=== PATIENT | male | born 1955 | race Caucasian/White ===

== ENCOUNTER 2019-09-18 10:03 | Outpatient (CLI) | payer OTHER, SELFPAY ==
--- NOTE | ~2019-09-18 | MR_ITS ---
EXAMINATION: MR lower leg RT wo con DATE: 09/18/2019 12:01 INDICATION: Right lower leg weakness and pain for 2 weeks post experiencing a sharp pain at the right calf with walking TECHNIQUE: Magnetic resonance imaging (MRI) of the right lower leg was performed without intravenous contrast. A marker was placed over the mass. Sequences included axial, sagittal and coronal T1-weigh chrystal FSE and axial, sagittal and coronal fluid sensitive FSE STIR. The lateral left lower leg is inclu ded on the coronal images. COMPARISON: None. FINDINGS: Bone alignment is normal. Normal bone marrow signal throughout with no reactive edema, fracture or pa thologic marrow replacing process. No periostitis. Relatively symmetric muscle bulk throughout both c zaidi. There is a small tear along the distal myotendinous junction of the medial head of the gastroc nemius muscle which measures approximately 1 cm in width. The width of the medial head of the gastroc nemius portion of the proximal most Achilles tendon at this level measures approximately 5 cm. No sig nificant retraction. There is a very small fluid collection at the 7 tear with mild epimysial and mus cular edema about the distal aspect of the medial head of the gastrocnemius muscle. Physiologic amoun t of fluid at the bilateral knee joints. IMPRESSION: 1. Small moderate grade tear at the distal myotendinous junction of the medial head of the right stacy rocnemius muscle. Reviewed, dictated and finalized at location A. RISK ANALYST IMPRESSION: 1. Small moderate grade tear at the distal myotendinous junction of the medial head of the right gastrocnemius muscle.
== END 2019-09-18 10:04 | disposition home or self-care (01) ==
LOC: ANHIMG 10:10
PROVIDERS: PCP Family Medicine; Visit Provider Nurse Practitioner Family
DX: M79.661 Pain in right lower leg (principal); R29.898 Other symptoms and signs involving the musculoskeletal system
CPT/HCPCS: 73718

== ENCOUNTER 2019-10-26 10:29 | Emergency (ER) | payer OTHER, SELFPAY ==
--- NOTE | ~2019-10-26 | XR_ITS ---
EXAMINATION: XR chest 1V portable EXAM DATE: 10/26/2019 11:19 INDICATION: Cough, shortness of breath, history of smoking. TECHNIQUE: Portable AP frontal chest x-ray was obtained. Comparison is made to prior examination from 07/13/2012. FINDINGS: The lungs are clear. There are no pleural effusions. Cardiomediastinal silhouette is norm al. There is no pneumothorax suspected. The bones and soft tissues are unremarkable. IMPRESSION: No acute cardiopulmonary findings. Reviewed, dictated and finalized at location B.
[2019-10-26 10:38] VITALS: BP 143/84; PULSE 84; RESP 20; TEMP 36.4; O2SAT 96
[2019-10-26 10:43] VITALS: PULSE 68; RESP 14; O2SAT 99
--- NOTE | 2019-10-26 10:45 | ECG_ITS ---
Measurements Intervals [place] Rate: 85 P: 62 CO: 171 QRS: -22 QRSD: 101 T: 63 QT: 365 QTc: 436 Interpretive Statements SINUS RHYTHM BORDERLINE R WAVE PROGRESSION, ANTERIOR LEADS BORDERLINE T WAVE ABNORMALITY- LATERAL LEADS BASELINE ARTIFACT- I, III, V4 BORDERLINE ECG Electronically Signed On 10-26-2019 10:51:17 CDT by Heriberto Mejia D.O.
[2019-10-26] MEDS: SODIUM CHLORIDE 0.9% IV 1,000 ML 999 ML IV CONT (10:55)
[2019-10-26] MEDS: FAMOTIDINE 20 MG/2 ML VIAL IV PUSH (10:56)
[2019-10-26] MEDS: ONDANSETRON INJ 4 MG/2 ML VIAL IV PUSH (10:56)
[2019-10-26 10:57] LABS: Basophils Percent Auto 0.3 % (0.2-1.2); Hematocrit 49.4 % (42.0-52.0); Hemoglobin 16.8 g/dL (14.0-18.0); Immature Granulocyte Absolute 0.03 K/mm3 (0.00-0.031); Immature Granulocyte Percent A 0.4 % (0-0.5); Lymphocytes Absolute Auto 1.61 K/mm3 (0.9-3.2); Lymphocytes Percent Auto 23.9 % (18.3-44.2); Mean Corpuscular Hemoglobin 31.1 pg (26-34); Mean Corpuscular Volume 91.3 fl (80-100); Mean Platelet Volume 10.5 fl (7.4-10.4); Monocytes Absolute Auto 0.7 K/mm3 (0.1-0.6); Monocytes Percent Auto 10.8 % (2.6-8.5); Neutrophils Absolute Auto 4.4 K/mm3 (1.3-6.7); Neutrophils Percent Auto 64.6 % (45.5-73.1); Platelet Count Result 154 k/mm3 (150-375); Red Blood Count 5.41 M/mm3 (4.6-6.20); Red Cell Distribution Width 12.6 % (11.5-14.5); White Blood Count 6.7 K/mm3 (4.5-10.0)
[2019-10-26 11:01] LABS: Glucose Point of Care 169 (65-105)
[2019-10-26 11:04] LABS: Add Urine Microscopic? YES; Appearance Urine Clear (Clear); Bilirubin Urine Negative (Negative); Blood Urine Negative (Negative); Color Urine Yellow (Yellow); Glucose Urine UA 3+ mg/dL (Negative); Ketones Urine Negative (Negative); Leukocyte Esterase Ur Negative LEU/UL (Negative); Mucus Urine Rare /lpf; Nitrate Urine Negative (Negative); Protein Urine 2+ mg/dL (Negative); RBC Urine 0-2 /hpf (0-2); Specific Grav Ur 1.026 (1.001-1.035); Squamous Epithelial Cell Urine Rare /hpf (Few); Urobilinogen Urine Negative mg/dL (<2.0); WBC Urine 0-3 /hpf
[2019-10-26 11:09] LABS: Lactate Dehydrogenase 508 U/L (313-618)
--- NOTE | 2019-10-26 11:12 | ED.ABDPAIN ---
HPI - Abdominal Pain General Chief Complaint: Unspecified <SUKHWINDER Miller Last Filed: 10/26/19 13:38> Stated Complaint: multiple complaints <SUKHWINDER Miller Last Filed: 10/26/19 13:38> Time Seen by Provider: 10/26/19 10:32 <SUKHWINDER Miller Last Filed: 10/26/19 13:38> Source: patient <SUKHWINDER Miller Last Filed: 10/26/19 13:38> Mode of arrival: ambulatory <SUKHWINDER Miller Last Filed: 10/26/19 13:38> Limitations: no limitations <SUKHWINDER Miller Last Filed: 10/26/19 13:38> History of Present Illness HPI narrative: Patient is a 64-year-old male who presents to emergency department for evaluation of chills body aches for the last several days with nausea vomiting diarrhea minimal cough with some rhinorrhea congestion and sore throat. 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 Patient is insulin-dependent notes that his sugars have been under 200. Patient has not been seen for this complaint patient notes fatigue being his worst symptom. Patient does note slight dyspnea but denies any chest pain <SUKHWINDER Miller Last Filed: 10/26/19 13:38> Related Data Home Medications: Home Medications Medication Instructions Recorded Confirmed escitalopram oxalate 10 mg tablet 10 mg PO DAILY 05/31/19 insulin aspart U-100 100 unit/mL 10 unit SUB-Q TID 05/31/19 subcutaneous solution insulin degludec 100 unit/mL 70 unit SUB-Q DAILY ml 05/31/19 subcutaneous solution rosuvastatin 20 mg tablet 20 mg PO DAILY 05/31/19 <SUKHWINDER Miller Last Filed: 10/26/19 13:38> Allergies/Adverse Reactions: Allergies Allergy/AdvReac Type Severity Reaction Status Date / Time levofloxacin Allergy Unknown rash Verified 09/04/19 08:02 <SUKHWNIDER Miller Last Filed: 10/26/19 13:38> Review of Systems Review of Systems: All systems reviewed & are unremarkable except as noted in HPI and below <SUKHWINDER Miller Last Filed: 10/26/19 13:38> [facility] Past Medical History Medical History: Medical History Diabetes mellitus <Erik Jackson PA-C - Last Filed: 10/26/19 13:38> Surgical History Surgical History: Surgical History History of orthopedic surgery <Erik Jackson PA-C - Last Filed: 10/26/19 13:38> Social History Social History: Social History Smoking status: Former smoker Second hand tobacco smoke exposure: No Smoking end date: 07/19/10 Alcohol intake: current <Erik Jackson PA-C - Last Filed: 10/26/19 13:38> Exam Narrative: Exam Narrative: GENERAL: Well-appearing, well-nourished, and in no acute distress. HEAD: Normocephalic, atraumatic. EYES: PERRLA and EOMI. ENT: Nares clear, no rhinorrhea or epistaxis. Mucous membranes moist. Oropharynx without tonsillar hypertrophy exudate or other lesions. NECK: Supple. No adenopathy or masses. CHEST: Clear to auscultation. No respiratory distress. No wheezes rales or rhonchi HEART: Regular rate and rhythm. No murmur heard. Normal peripheral pulses. ABDOMEN: Soft, nontender, nondistended, EXTREMITIES: Normal range of motion. No edema. SKIN: Warm, dry, no rash. NEURO: No focal deficits. Alert and oriented x3. PSYCH: Normal mood and affect. <Erik Jackson PA-C - Last Filed: 10/26/19 13:38> Course Course Emergency Course: Patient in the room in no distress without high risk changes in the blood work or imaging patient was hydrated and is feeling much better at this time notes that he feels comfortable prefers to go home is aware of recommendations and discussion with primary care. Patient will have video follow-up in 1 week with primary care and was given stric
[2019-10-26 11:15] LABS: Alanine Aminotransferase 66 U/L (4-50); Albumin Level 4.5 g/dL (3.5-5.1); Alkaline Phosphatase 99 U/L (38-126); Aspartate Amino Transferase 68 U/L (17-59); Bilirubin,Total 0.7 mg/dL (0.2-1.3); Blood Urea Nitrogen 36 mg/dL (9-20); CRP 1.4 mg/dL (<1.0); Calcium 9.3 mg/dL (8.4-10.2); Carbon Dioxide 24 mmol/L (22-30); Chloride 97 mmol/L (98-107); Estimated CRCL calculation 50 ml/min; Estimated Glomerular Filt Rate 44; Glucose 193 mg/dL (75-110); Phosphorus 4.1 mg/dL (2.5-4.5); Potassium 4.4 mmol/L (3.4-5.0); Sodium 134 mmol/L (137-145)
[2019-10-26] MEDS: LACTATED RINGERS 1,000 ML 999 ML IV CONT (11:49)
[2019-10-26 11:50] VITALS: BP 118/70; PULSE 77; RESP 18; O2SAT 98
[2019-10-26 13:44] VITALS: BP 118/70; PULSE 71; RESP 18; O2SAT 97
[2019-10-26 13:45] VITALS: BP 118/70; PULSE 72; RESP 12; O2SAT 96
== END 2019-10-26 13:47 | disposition home or self-care (01) ==
PROVIDERS: Emergency Medicine Emergency Medical Services; Emergency Provider Emergency Medicine; PCP Family Medicine
DX: R11.10 Vomiting, unspecified (principal); Z87.891 Personal history of nicotine dependence; E11.9 Type 2 diabetes mellitus without complications; Z79.4 Long term (current) use of insulin; R94.31 Abnormal electrocardiogram [ECG] [EKG]
CPT/HCPCS: 36415; 71045; 80053; 81001; 82010; 82948; 83615; 83735; 84100; 85025; 86140; 87081; 87880; 93005; 96361; 96374; 96375; 99284; J0131; J2405; J7030; J7120

== ENCOUNTER 2021-04-11 11:43 | Inpatient (IN) | payer OTHER, SELFPAY ==
--- NOTE | ~2021-04-11 | XR_ITS ---
EXAMINATION: XR chest 2V EXAM DATE: 04/11/2021 13:31 INDICATION: Cough, HX: COPD, DM . TECHNIQUE: Frontal and lateral projections of the chest obtained and reviewed. Comparison is made to prior examination from 10/26/2019. FINDINGS: The lungs are clear. There are no pleural effusions. The cardiomediastinal silhouette is within normal limits. There is no pneumothorax suspected. The bones and soft tissues are unremarkab le. IMPRESSION: No acute cardiopulmonary findings. Reviewed, dictated and finalized at location B.
[2021-04-11 11:51] VITALS: BP 136/84; PULSE 111; RESP 16; TEMP 36.6; O2SAT 96
--- NOTE | 2021-04-11 13:17 | ED.GENADULT ---
HPI - General Adult General Chief complaint: Upper Respiratory Infection Stated complaint: Chills/weak/ I think I have COVID Time Seen by Provider: 04/11/21 12:35 Source: patient Mode of arrival: ambulatory Limitations: no limitations History of Present Illness HPI narrative: Patient is a 66-year-old male complaining of cough, fever, body aches, malaise that started 5 days ago. Patient also complaining of a tender area on his upper back that started 6 days ago. Patient denies any chest pain, shortness of breath, abdominal pain, nausea, vomiting, diarrhea, or urinary symptoms. Patient states that he is fully vaccinated from [employer]. Related Data Allergies Allergy/AdvReac Type Severity Reaction Status Date / Time levofloxacin Allergy Unknown rash Verified 06/06/20 08:55 Review of Systems Review of Systems: All systems reviewed & are unremarkable except as noted in HPI and below Constitutional: Constitutional: Denies excessive sweating, Denies fatigue, Denies headache(s), Denies lethargy, Denies weakness and Denies weight loss Eyes: Eyes: Denies blurry vision, Denies change in vision and Denies loss of vision ENT: Denies dizziness, Denies ear discharge, Denies headache(s), Denies lip swelling, Denies epistaxis, Denies nasal congestion, Denies neck pain, Denies throat swelling and Denies tongue swelling Cardiovascular: Cardiovascular: Denies chest pain, Denies chest pain at rest, Denies chest pain with activity, Denies diaphoresis, Denies rapid heart rate, Denies edema, Denies irregular heart rhythm, Denies lightheadedness, Denies palpitations, Denies dyspnea and Denies dyspnea on exertion Respiratory: Respiratory: Denies chest congestion, Denies hemoptysis, Denies dyspnea and Denies dyspnea on exertion Gastrointestinal: Gastrointestinal: Denies abdominal pain, Denies melena, Denies hematochezia, Denies diarrhea, Denies nausea, Denies vomiting and Denies hematemesis Musculoskeletal: Musculoskeletal: Denies abnormal gait, Denies deformity, Denies joint swelling, Denies limited range of motion, Denies neck pain and Denies numbness Neurologic: Denies Abnormal speech present, Denies abnormal gait, Denies confusion, Denies dizziness, Denies headache(s), Denies focal weakness, Denies loss of vision, Denies numbness, Denies Other visual disturbances, Denies Sensory deficit (Neuro) and Denies weakness Psychiatric: Psychiatric: Denies confusion, Denies depression, Denies auditory hallucinations, Denies homicidal ideation and Denies suicidal ideation Endocrine: Endocrine: Denies cold intolerance, Denies excessive sweating, Denies fatigue, Denies heat intolerance and Denies palpitations Hematologic/Lymphatic: Hematologic/Lymphatic: Denies easy bleeding and Denies easy bruising Allergic/Immunologic: Allergic/Immunologic: Denies lip swelling, Denies throat swelling and Denies tongue swelling PMFSH Past Medical History Medical History (Updated 04/11/21 @ 17:51 by Trevor Lockwood MD) Back pain COPD (chronic obstructive pulmonary disease) Diabetes mellitus Diabetes mellitus with complication, with long-term current use of insulin Erectile dysfunction Glaucoma Surgical History Surgical History History of orthopedic surgery Family History Family History Grandparent Family history of malignant neoplasm Father Carcinoma of colon Family history of type 2 diabetes mellitus Diabetes mellitus Hypertension Mother Lung disease Heart disease COPD (chronic obstructive pulmonary disease) Glaucoma Hypertension Sibling Liver disease Other Family history of cardiovascular disease Social History Social History Smoking status: Former smoker Second hand tobacco smoke exposure: No Smoking end date: 07/19/10 Alcohol intake: current Exam Const:
[2021-04-11 14:05] LABS: Basophils Absolute Auto 0.1 K/mm3 (0.0-0.1); Basophils Percent Auto 0.3 % (0.2-1.2); Eosinophils Absolute Auto 0.2 K/mm3 (0-0.3); Hematocrit 42.9 % (42.0-52.0); Immature Granulocyte Absolute 0.19 K/mm3 (0.00-0.031); Immature Granulocyte Percent A 1.2 % (0-0.5); Lymphocytes Absolute Auto 0.94 K/mm3 (0.9-3.2); Lymphocytes Percent Auto 5.8 % (18.3-44.2); Mean Corpuscular Hemoglobin 32.7 pg (26-34); Mean Corpuscular Volume 93.5 fl (80-100); Mean Platelet Volume 10.5 fl (7.4-10.4); Monocytes Absolute Auto 1.4 K/mm3 (0.1-0.6); Monocytes Percent Auto 8.3 % (2.6-8.5); Neutrophils Absolute Auto 13.6 K/mm3 (1.3-6.7); Neutrophils Percent Auto 83.4 % (45.5-73.1); Platelet Count Result 227 k/mm3 (150-375); Red Blood Count 4.59 M/mm3 (4.6-6.20); Red Cell Distribution Width 11.9 % (11.5-14.5); White Blood Count 16.3 K/mm3 (4.5-10.0)
[2021-04-11 14:15] LABS: Lactic Acid Reflex 1.7 mmol/L (0.7-2.1)
[2021-04-11] MEDS: SODIUM CHLORIDE 0.9% IV 1,000 ML 999 ML IV CONT (14:24)
[2021-04-11 15:02] LABS: Anion Gap 21 mmol/L (8-16); Blood Urea Nitrogen 57 mg/dL (9-20); Calcium 9.1 mg/dL (8.4-10.2); Carbon Dioxide 17 mmol/L (22-30); Chloride 88 mmol/L (98-107); Estimated CRCL calculation 53 ml/min; Estimated Glomerular Filt Rate 51; Glucose 595 mg/dL (65-110); Potassium 4.7 mmol/L (3.4-5.0); Sodium 126 mmol/L (137-145)
[2021-04-11 15:10] VITALS: BP 142/79; PULSE 93; RESP 16; O2SAT 95
[2021-04-11 16:10] LABS: Add Urine Microscopic? YES; Appearance Urine Clear (Clear); Bilirubin Urine Negative (Negative); Blood Urine 1+ (Negative); Color Urine Straw (Yellow); Glucose Urine UA 3+ mg/dL (Negative); Ketones Urine 1+ mg/dL (Negative); Leukocyte Esterase Ur Negative LEU/UL (Negative); Nitrate Urine Negative (Negative); Protein Urine 2+ mg/dL (Negative); RBC Urine 0-2 /hpf (0-2); Specific Grav Ur 1.022 (1.001-1.035); Urobilinogen Urine Negative mg/dL (<2.0); WBC Urine 0-3 /hpf
[2021-04-11] MEDS: LACTATED RINGERS 1,000 ML 999 ML IV CONT ×2 (16:15→17:38)
[2021-04-11 16:37] LABS: Alveolar/Arterial O2 Gradient 28.8 mmHg; Base Excess ABG -6.9 mEq/l (+/-2.0); Carboxyhemoglobin 0.7 % THb (0-2.0); Device ROOM AIR; Fractional Inspired Oxygen 21 %; HCO3 ABG 16.5 mEq/l (22.0-26.0); Methemoglobin ABG 0.3 %THb (0-1.5); Modified Allen's Test Pass; Oxygen Content ABG 19.1 %vol (16.0-22.0); Oxygen Saturation ABG 96.7 % (95.0-100.0); Oxyhemoglobin 95.2 % THb (90.0-100.0); PO2 ABG 87.4 mmHg (80.0-100.0); PO2 FiO2 Ratio Arterial Blood 4.16 %; Reduced Hemoglobin 3.8 %THb (0-5.0); Site Drawn RIGHT RADIAL; Total Hemoglobin 14.2 g/dL (12.0-18.0); pH ABG 7.388 (7.350-7.450)
[2021-04-11 16:52] LABS: Beta-Hydroxybutyrate/Acetoacetate 4.45 mmol/L (0.02-0.27)
[2021-04-11] MEDS: INSULIN HUMAN REGULAR (*BKC) 100 UNITS/ML 10 UNITS IV PUSH (17:39)
[2021-04-11] MEDS: HYDROmorphone HCL INJ (*CRX) 1 MG/ML SYR 0.5 MG IV PUSH (17:40)
[2021-04-11 18:15] LABS: Glucose Point of Care 497 mg/dl (65-105)
[2021-04-11] MEDS: INSULIN HUMAN REGULAR (*BKC) 100 UNITS in SODIUM CHLORIDE 0.9% IV 99 ML 8.7 UNITS IV CONT (18:59)
[2021-04-11 19:15] VITALS: BP 147/80; PULSE 91; RESP 16; O2SAT 96
[2021-04-11 20:00] VITALS: PULSE 98
--- NOTE | 2021-04-11 20:16 | ADMGEN ---
This patient, Suhas Childress, was admitted to Intensive Care Unit-7. Patient/family oriented to hospital policies and general routines including ID bracelet, bed and alarms, visiting hours, pain management, procedures, bathroom and other care routines, personal items, smoking policy, room service/diet, and visiting hours. Information on how to activate the Rapid Response Team has been discussed. Patient/Family are encouraged to report perceived risks to care and to ask questions if they do not understand what they are told or what they should do.
[2021-04-11 20:54] VITALS: BMI 28.3
--- NOTE | 2021-04-11 21:57 | PM.IMHP ---
H&P: HPI History of Present Illness Date/Time: 04/11/21 21:57 this is a 66-year-old diabetic male patient who stated that he started feeling sick about 6 days ago. The patient stated that he had fever and chills and body aches. The patient stated that he vomited 2 times in the last 6 days that was coffee-ground color. The patient stated that he started out with a small abscess to his left shoulder and continue to get bigger and bigger. The patient stated that he did not try to pop it and he did not have any injury or any bites that he is aware of. He has not been around any sick contacts. The patient stated that he was fully vaccinated for COVID-19 with complete set of vaccines. The patient stated he felt feverish and had body aches. The patient came to hospital because he thought maybe he had COVID. According to the ED provider he stated that surgery has been consulted and agreed to see the patient. Also the patient was found to be in DKA. His blood sugar 595. The patient stated that he did not take any of his medication for the last 6 days because he did not feel very well. His last hemoglobin A1c was 10.4 on 06/06/2020. The patient's sodium is 126. Anion gap 21. BUN 57 creatinine 1.4. The patient was started on an insulin drip. Pool Technician has been consulted and agreed to placement of the patient into ICU. The patient's beta hydroxybutyrate was 4.45. His white count is 16.3. Chest x-ray was read as no acute cardiopulmonary findings. The patient is being admitted to inpatient services on the date of service of 04/11/2021. Chief Complaint: Nausea vomiting body aches and chills Review of Systems Review of Systems: All systems reviewed & are unremarkable except as noted in HPI and below Constitutional: Constitutional: Reports as per HPI and Reports no additional constitutional complaints Eyes: Eyes: Reports as per HPI and Reports no additional eye complaints ENT: Reports system reviewed and no additional complaints, except as documented and Reports Normal hearing present Cardiovascular: Cardiovascular: Reports no additional cardiovascular complaints Respiratory: Respiratory: Reports no additional respiratory complaints and Reports no additional respiratory complaints Gastrointestinal: Gastrointestinal: Reports as per HPI and Reports no additional gastrointestinal complaints Musculoskeletal: Musculoskeletal: Reports no additional musculoskeletal complaints Integumentary/Breasts: Skin/Breast: Reports system reviewed and no additional complaints, except as docu and Reports as per HPI Neurologic: Reports system reviewed and no additional complaints, except as documented, Reports as per HPI and Reports Normal hearing present Psychiatric: Psychiatric: Reports no additional psychiatric complaints and Reports as per HPI Endocrine: Endocrine: Reports no additional endocrine complaints Hematologic/Lymphatic: Hematologic/Lymphatic: Reports no additional hematologic/lymphatic complaints Allergic/Immunologic: Allergic/Immunologic: Reports no additional allergic/immunologic complaints [facility] Past Medical History Medical History (Updated 04/11/21 @ 22:13 by Felisha Garrison NP) Back pain Chronic renal disease COPD (chronic obstructive pulmonary disease) Diabetes mellitus Diabetes mellitus with complication, with long-term current use of insulin Erectile dysfunction Glaucoma Surgical History Surgical History (Updated 04/11/21 @ 22:03 by Felisha Garrison NP) History of orthopedic surgery 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eoplasm Diabetes mellitus Father Diabetes mellitus Family history of type 2 diabetes mellitus Carcinoma of colon Hypertension Mother Heart disease COPD (chronic obstructive pulmonary disease) Lung disease Glaucoma Hypertension Sibling Liver disease Other
[2021-04-11 22:00] VITALS: BP 140/95; PULSE 88; RESP 23; O2SAT 95
[2021-04-11] MEDS: KCL 20 MEQ/D5/0.45% SOD CHL 1,000 ML 150 ML IV CONT (22:20)
[2021-04-11 22:24] LABS: Anion Gap 15 mmol/L (8-16); Blood Urea Nitrogen 53 mg/dL (9-20); Calcium 8.7 mg/dL (8.4-10.2); Carbon Dioxide 21 mmol/L (22-30); Chloride 94 mmol/L (98-107); Estimated CRCL calculation 57 ml/min; Estimated Glomerular Filt Rate 55; Glucose 369 mg/dL (65-110); Magnesium 2.4 mg/dL (1.6-2.3); Phosphorus 2.9 mg/dL (2.5-4.5); Potassium 3.8 mmol/L (3.4-5.0); Sodium 130 mmol/L (137-145)
[2021-04-12] VITALS (10 sets, daily range): BP systolic 96–135; BP diastolic 61–72; PULSE 70–95; RESP 14–23; TEMP 36.3–37.2; O2SAT 94–98
[2021-04-12 00:51] LABS: Glucose Point of Care 409 mg/dl (65-105)
[2021-04-12 00:51] LABS: Glucose Point of Care 408 mg/dl (65-105)
[2021-04-12 00:52] LABS: Glucose Point of Care 296 mg/dl (65-105)
[2021-04-12 00:52] LABS: Glucose Point of Care 242 mg/dl (65-105)
[2021-04-12 00:52] LABS: Glucose Point of Care 295 mg/dl (65-105)
[2021-04-12 02:14] LABS: Anion Gap 14 mmol/L (8-16); Blood Urea Nitrogen 51 mg/dL (9-20); Calcium 8.5 mg/dL (8.4-10.2); Carbon Dioxide 21 mmol/L (22-30); Chloride 96 mmol/L (98-107); Estimated CRCL calculation 67 ml/min; Estimated Glomerular Filt Rate > 60; Glucose 219 mg/dL (65-110); Potassium 3.8 mmol/L (3.4-5.0); Sodium 131 mmol/L (137-145)
[2021-04-12 03:23] LABS: Glucose Point of Care 181 mg/dl (65-105)
[2021-04-12] MEDS: INSULIN HUMAN REGULAR (*BKC) 100 UNITS in SODIUM CHLORIDE 0.9% IV 99 ML IV CONT (05:01)
[2021-04-12] MEDS: ACETAMINOPHEN 325 MG TABLET 650 MG PO ×3 (05:15→15:33)
[2021-04-12 06:42] LABS: Basophils Percent Auto 0.2 % (0.2-1.2); Hematocrit 34.2 % (42.0-52.0); Hemoglobin 12.1 g/dL (14.0-18.0); Immature Granulocyte Absolute 0.13 K/mm3 (0.00-0.031); Immature Granulocyte Percent A 0.9 % (0-0.5); Lymphocytes Absolute Auto 1.09 K/mm3 (0.9-3.2); Lymphocytes Percent Auto 7.7 % (18.3-44.2); Mean Corpuscular HGB Conc 35.4 g/dl (32-36); Mean Corpuscular Volume 90.5 fl (80-100); Mean Platelet Volume 10.6 fl (7.4-10.4); Monocytes Absolute Auto 1.4 K/mm3 (0.1-0.6); Neutrophils Absolute Auto 11.5 K/mm3 (1.3-6.7); Neutrophils Percent Auto 81.2 % (45.5-73.1); Platelet Count Result 199 k/mm3 (150-375); Red Blood Count 3.78 M/mm3 (4.6-6.20); Red Cell Distribution Width 11.7 % (11.5-14.5); White Blood Count 14.1 K/mm3 (4.5-10.0)
[2021-04-12] MEDS: KCL 20 MEQ/D5/0.45% SOD CHL 1,000 ML 150 ML IV CONT (06:44)
[2021-04-12 06:46] LABS: Lactic Acid Reflex 1.3 mmol/L (0.7-2.1)
[2021-04-12 06:53] LABS: Anion Gap 7 mmol/L (8-16); Blood Urea Nitrogen 47 mg/dL (9-20); Calcium 8.2 mg/dL (8.4-10.2); Carbon Dioxide 26 mmol/L (22-30); Chloride 97 mmol/L (98-107); Estimated CRCL calculation 67 ml/min; Estimated Glomerular Filt Rate > 60; Glucose 169 mg/dL (65-110); Lactate Dehydrogenase 398 U/L (313-618); Magnesium 2.3 mg/dL (1.6-2.3); Potassium 3.5 mmol/L (3.4-5.0); Sodium 130 mmol/L (137-145)
[2021-04-12 07:04] LABS: Alanine Aminotransferase 14 U/L (4-50); Albumin Level 2.9 g/dL (3.5-5.1); Alkaline Phosphatase 82 U/L (38-126); Aspartate Amino Transferase 21 U/L (17-59); Bilirubin,Total 0.4 mg/dL (0.2-1.3)
--- NOTE | 2021-04-12 07:23 | PM.IMPN ---
Progress Note: A&P Assessment and Plan (1) DKA (diabetic ketoacidosis): Qualifiers: Diabetes mellitus complication detail: without coma Diabetes mellitus type: other specified (including CELESTE) Qualified Code(s): E13.10 - Other specified diabetes mellitus with ketoacidosis without coma Code(s): E11.10 - Type 2 diabetes mellitus with ketoacidosis without coma Status: Acute Assessment and Plan: Patient was started on DKA protocol overnight in the form of IV fluids and insulin infusion Anion gap has closed but patient's insulin drip is at 14 units/hour. He denies any symptom but does not feel appetite to eat at this time Start Lantus 80 units subQ q.a.m.. Continue insulin infusion for now until patient starts eating and insulin drip is at a lower rate Change IV fluids to normal saline with KCl Advance diet as tolerated His A1c is 10 Consult tobacco educator later in the course of the hospitalization (2) Cellulitis and abscess of other specified site: Code(s): L03.818 - Cellulitis of other sites; L02.818 - Cutaneous abscess of other sites Status: Acute Assessment and Plan: Abscess noted to the left lateral upper back near the scapula. General surgery was consulted from ER to evaluate for I&D The abscess appears to be slightly open now with purulent drainage I tried to press rounding area but only minimal amount of drainage came Continue imipenem and and vancomycin Blood cultures are pending. Wound culture will be ordered (3) Suspected COVID-19 virus infection: Code(s): Z20.822 - Contact with and (suspected) exposure to COVID-19 Status: Acute Assessment and Plan: The patient has been falling vaccinated. Waiting on COVID PCR. Droplet and contact isolation has been initiated. (4) Chronic renal disease: Code(s): N18.9 - Chronic kidney disease, unspecified Status: Chronic Assessment and Plan: Creatinine appears to have improved to normal level with IV fluid (5) Hypertension: Code(s): I10 - Essential (primary) hypertension Status: Chronic Assessment and Plan: Currently blood pressure is in range P.r.n. hydralazine. Lisinopril is on hold at this time (6) Mixed hyperlipidemia: Code(s): E78.2 - Mixed hyperlipidemia Status: Acute Assessment and Plan: Resume rosuvastatin (7) Depression with anxiety: Code(s): F41.8 - Other specified anxiety disorders Status: Acute Assessment and Plan: Continue with home medications once the patient is no longer NPO. Additional Plan 04/12/2021 DVT prophylaxis -Lovenox subQ Nutrition -advance diet as tolerated Code Status - Full Code Will continue current plan of care and treatment. COVID test pending. Subjective Date/time seen: 04/12/21 07:23 Patient was seen during the morning rounds today. Mild shortness of breath no chest pain. No abdominal pain, no nausea, no vomiting. Mood stable Review of Systems Review of Systems: All systems reviewed & are unremarkable except as noted in HPI and below Constitutional: Constitutional: Reports as per HPI and Reports no additional constitutional complaints Eyes: Eyes: Reports as per HPI and Reports no additional eye complaints ENT: Reports system reviewed and no additional complaints, except as documented and Reports Normal hearing present Cardiovascular: Cardiovascular: Reports no additional cardiovascular complaints Respiratory: Respiratory: Reports no additional respiratory complaints and Reports no additional respiratory complaints Gastrointestinal: Gastrointestinal: Reports as per HPI and Reports no additional gastrointestinal complaints Musculoskeletal: Musculoskeletal: Reports no additional musculoskeletal complaints Integumentary/Breasts: Skin/Breast: Reports system reviewed and no additional complaints, except as docu and Reports as per HPI Neurologic: Reports system reviewed and no additiona
[2021-04-12] MEDS: ENOXAPARIN 40 MG/0.4 ML SYRINGE SUB-Q (08:13)
[2021-04-12 08:18] LABS: Glucose Point of Care 189 mg/dl (65-105)
[2021-04-12 08:18] LABS: Glucose Point of Care 117 mg/dl (65-105)
[2021-04-12 08:18] LABS: Glucose Point of Care 188 mg/dl (65-105)
[2021-04-12 08:18] LABS: Glucose Point of Care 190 mg/dl (65-105)
[2021-04-12 08:18] LABS: Glucose Point of Care 114 mg/dl (65-105)
[2021-04-12 08:18] LABS: Glucose Point of Care 229 mg/dl (65-105)
[2021-04-12 08:18] LABS: Glucose Point of Care 175 mg/dl (65-105)
[2021-04-12 09:03] LABS: CRP 28.9 mg/dL (<1.0)
[2021-04-12 09:18] LABS: Glucose Point of Care 136 mg/dl (65-105)
--- NOTE | 2021-04-12 09:38 | WPDCNINT ---
Assessment and Plan Assessment and plan (1) DKA (diabetic ketoacidosis): Qualifiers: Diabetes mellitus complication detail: without coma Diabetes mellitus type: other specified (including CELESTE) Qualified Code(s): E13.10 - Other specified diabetes mellitus with ketoacidosis without coma Code(s): E11.10 - Type 2 diabetes mellitus with ketoacidosis without coma Status: Acute Assessment and Plan: Patient was started on DKA protocol overnight in the form of IV fluids and insulin infusion Anion gap has closed but patient's insulin drip is at 14 units/hour. He denies any symptom but does not feel appetite to eat at this time Start Lantus 80 units subQ q.a.m.. Continue insulin infusion for now until patient starts eating and insulin drip is at a lower rate Change IV fluids to normal saline with KCl Advance diet as tolerated His A1c is 10 Consult certified breastfeeding educator later in the course of the hospitalization (2) Cellulitis and abscess of other specified site: Code(s): L03.818 - Cellulitis of other sites; L02.818 - Cutaneous abscess of other sites Status: Acute Assessment and Plan: Abscess noted to the left lateral upper back near the scapula. General surgery was consulted from ER to evaluate for I&D The abscess appears to be slightly open now with purulent drainage I tried to press rounding area but only minimal amount of drainage came Continue imipenem and and vancomycin Blood cultures are pending. Wound culture will be ordered (3) Suspected COVID-19 virus infection: Code(s): Z20.822 - Contact with and (suspected) exposure to COVID-19 Status: Acute Assessment and Plan: The patient has been falling vaccinated. Waiting on COVID PCR. Droplet and contact isolation has been initiated. (4) Chronic renal disease: Code(s): N18.9 - Chronic kidney disease, unspecified Status: Chronic Assessment and Plan: Creatinine appears to have improved to normal level with IV fluid (5) Hypertension: Code(s): I10 - Essential (primary) hypertension Status: Chronic Assessment and Plan: Currently blood pressure is in range P.r.n. hydralazine. Lisinopril is on hold at this time (6) Mixed hyperlipidemia: Code(s): E78.2 - Mixed hyperlipidemia Status: Acute Assessment and Plan: Resume rosuvastatin (7) Depression with anxiety: Code(s): F41.8 - Other specified anxiety disorders Status: Acute Assessment and Plan: Continue with home medications once the patient is no longer NPO. Additional Plan DVT prophylaxis -Lovenox subQ Nutrition -advance diet as tolerated Code Status - Full Code Manager Van Consult Note Consult date: 04/12/21 Time Seen: 08:00 HPI: Suhas Childress is a 66 year old male with past medical history of diabetes presented yesterday to ED with chief complaint of feeling sick about 1 week. He complained feeling of tired and weak. He also had fever and chills and body aches. He had few episodes of vomiting but no abdominal pain or diarrhea. Did not see any blood in the vomitus. He also states that he started having an area of redness in his back was painful and tender and over time has grown in size. He has not sought any treatment for it. He states that he had poor appetite and was not taking his insulin regularly Review of system was positive of high blood sugar he states his blood sugar at 200-300 normally. All other system reviewed and were negative. He told me that he had received 2 doses of Pfizer vaccine and last dose was around 6 months ago In ED patient was found to be having an cutaneous abscess on his back and also was is in DKA. And surgery was consulted, patient was started on IV antibiotics, given IV fluid bolus and started on IV fluids, IV insulin infusion and admitted to ICU for further evaluation managed. At this time patient denies any complaints he states his appetite is poor apart fro
[2021-04-12 10:29] LABS: Anion Gap 5 mmol/L (8-16); Blood Urea Nitrogen 43 mg/dL (9-20); Carbon Dioxide 27 mmol/L (22-30); Chloride 99 mmol/L (98-107); Estimated CRCL calculation 74 ml/min; Estimated Glomerular Filt Rate > 60; Glucose 128 mg/dL (65-110); Potassium 3.4 mmol/L (3.4-5.0); Sodium 131 mmol/L (137-145)
[2021-04-12] MEDS: INSULIN GLARGINE (*BKC) 100 UNITS/ML 80 UNITS SUB-Q (10:30)
[2021-04-12] MEDS: KCL 20MEQ/0.9% SOD CHL 1,000 ML 100 ML IV CONT (10:31)
[2021-04-12 10:38] LABS: Glucose Point of Care 112 mg/dl (65-105)
[2021-04-12 11:33] LABS: Glucose Point of Care 93 mg/dl (65-105)
[2021-04-12 12:28] LABS: Glucose Point of Care 85 mg/dl (65-105)
[2021-04-12 13:26] LABS: Glucose Point of Care 98 mg/dl (65-105)
--- NOTE | 2021-04-12 14:24 | PM.CNGS ---
Assessment and Plan Assessment and plan (1) Abscess of upper back excluding scapular region: Code(s): L02.212 - Cutaneous abscess of back [any part, except buttock] Status: Acute Assessment and Plan: continue IV antibiotics. Await results of COVID PCR testing. Will need to have back abscess incised and drained. (2) DKA (diabetic ketoacidosis): Qualifiers: Diabetes mellitus complication detail: without coma Diabetes mellitus type: other specified (including CELESTE) Qualified Code(s): E13.10 - Other specified diabetes mellitus with ketoacidosis without coma Code(s): E11.10 - Type 2 diabetes mellitus with ketoacidosis without coma Status: Acute Assessment and Plan: Improving with insulin drip and other critical care management. Remains in ICU for this at this time. (3) Suspected COVID-19 virus infection: Code(s): Z20.822 - Contact with and (suspected) exposure to COVID-19 Status: Acute Assessment and Plan: After calling the lab, result should be out this evening. (4) Uncontrolled diabetes mellitus: Qualifiers: Diabetes mellitus type: type 2 Glycemic state: with hyperglycemia Qualified Code(s): E11.65 - Type 2 diabetes mellitus with hyperglycemia Code(s): E11.65 - Type 2 diabetes mellitus with hyperglycemia Status: Chronic Assessment and Plan: Hemoglobin A1c noted to be 10. History of Present Illness Consult details Consult date: 04/12/21 Reason for consult: other ( Back abscess) Requesting physician: Trevor Lockwood MD Narrative: the patient is a 66-year-old man who is an insulin-dependent diabetic. He is fully vaccinated for COVID with 2 doses of the Pfizer vaccine. He was admitted through the emergency room last night with hyperglycemia and diabetic ketoacidosis. He was also noted to have an abscess in the left upper back just to the left of the midline. The abscess was quite large and emergency room physician did not feel comfortable trying to drain it with the patient having this severe medical condition and the abscess being large and deep. Patient reports he started having back pain and a not associated with the pain about 6 days ago. He is not sure why he did not seek medical treatment before yesterday. He came to the emergency room for fear that he had developed COVID. He had some shortness of breath as well as fever and chills. He had body aches and had vomited at least a couple of times and this was coffee-ground color. A COVID PCR test was submitted about 2:00 a.m. yesterday. This result is pending. Patient is still in the ICU on an insulin drip but blood sugars are improving and he has been started on a diet. Review of Systems Review of Systems: All systems reviewed & are unremarkable except as noted in HPI and below Constitutional: Constitutional: Reports body ache(s), Reports chills, Reports fatigue, Reports fever(s), Denies headache(s) and Reports weakness Cardiovascular: Cardiovascular: Reports as per HPI, Denies chest pain, Denies syncope, Denies irregular heart rhythm, Denies palpitations and Reports dyspnea Respiratory: Respiratory: Reports as per HPI, Reports cough and Reports dyspnea Gastrointestinal: Gastrointestinal: Denies bloating, Denies constipation and Denies nausea Neurologic: Denies confusion and Denies headache(s) PMFSH Past Medical History Medical History Back pain Chronic renal disease COPD (chronic obstructive pulmonary disease) Diabetes mellitus Diabetes mellitus with complication, with long-term current use of insulin Erectile dysfunction Glaucoma Surgical History Surgical History History of orthopedic surgery 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
[2021-04-12 14:45] LABS: Glucose Point of Care 106 mg/dl (65-105)
--- NOTE | 2021-04-12 16:53 | PC.NURSE ---
This patient, Suhas Childress, was transferred to [facility] on 04/12/21 at 1654. Personal belongings sent with patient. Report given to MARLY Armstrong. Appropriate documentation sent with patient.
[2021-04-12 18:03] LABS: SARS-CoV-2 RNA PCR Negative
[2021-04-12 18:05] LABS: Glucose Point of Care 230 mg/dl (65-105)
[2021-04-12] MEDS: INSULIN ASPART (*BKC) 100 UNITS/ML SUB-Q ×2 (18:06→22:25)
--- NOTE | 2021-04-12 18:25 | PC.NURSE ---
Patient transferred to room 310 from ICU-7 at 1737 via wheelchair. Patient is alert and oriented and able to make needs known. Call light within reach and orientated of its use.
[2021-04-13] VITALS (12 sets, daily range): BP systolic 108–129; BP diastolic 63–79; PULSE 69–98; RESP 10–20; TEMP 36.2–37.4; O2SAT 96–100
[2021-04-13 04:10] LABS: Glucose Point of Care 231 mg/dl (65-105)
[2021-04-13] MEDS: INSULIN ASPART (*BKC) 100 UNITS/ML SUB-Q ×4 (06:39→21:55)
[2021-04-13 07:02] LABS: Hemoglobin 13.4 g/dL (14.0-18.0); Mean Corpuscular HGB Conc 34.4 g/dl (32-36); Mean Corpuscular Hemoglobin 32.1 pg (26-34); Mean Corpuscular Volume 93.5 fl (80-100); Mean Platelet Volume 10.7 fl (7.4-10.4); Platelet Count Result 206 k/mm3 (150-375); Red Blood Count 4.17 M/mm3 (4.6-6.20); Red Cell Distribution Width 12.1 % (11.5-14.5); White Blood Count 16.5 K/mm3 (4.5-10.0)
[2021-04-13 07:22] LABS: Glucose Point of Care 249 mg/dl (65-105)
[2021-04-13 07:32] LABS: Alanine Aminotransferase 20 U/L (4-50); Albumin Level 2.8 g/dL (3.5-5.1); Alkaline Phosphatase 101 U/L (38-126); Anion Gap 5 mmol/L (8-16); Aspartate Amino Transferase 35 U/L (17-59); Bilirubin,Total 0.3 mg/dL (0.2-1.3); Blood Urea Nitrogen 40 mg/dL (9-20); Calcium 8.1 mg/dL (8.4-10.2); Carbon Dioxide 27 mmol/L (22-30); Chloride 97 mmol/L (98-107); Estimated CRCL calculation 67 ml/min; Estimated Glomerular Filt Rate > 60; Glucose 257 mg/dL (65-110); Magnesium 2.3 mg/dL (1.6-2.3); Potassium 3.6 mmol/L (3.4-5.0); Sodium 129 mmol/L (137-145)
[2021-04-13 07:59] LABS: Glucose Point of Care 257 mg/dl (65-105)
--- NOTE | 2021-04-13 08:05 | WPDANESEPPF ---
Anes - Initial Pre Proc Eval Procedure: Operation Date: 04/13/21 09:30 Proposed Procedures p Incision and Debridement of Back Abscess - Ar Kelly MD Date/Time: 04/13/21 08:05 Pre Op Diagnosis: DKA/ Abscess and cellulitis of left upper back Patient Data Age: 66 Gender: M Height: 1.85 m Weight: 98.1 kg Last Vital Signs Temp 36.9 C 04/13/21 05:41 Pulse 69 04/13/21 05:41 Resp 20 04/13/21 05:41 BP 126/67 04/13/21 05:41 Pulse Ox 96 04/13/21 05:41 Allergies Allergy/AdvReac Type Severity Reaction Status Date / Time levofloxacin Allergy Unknown rash Verified 06/06/20 08:55 Home Medications Medication Instructions Recorded Confirmed Type blood sugar diagnostic #360 each 09/04/19 04/11/21 Rx blood-glucose meter #1 each 09/04/19 04/11/21 Rx pen needle, diabetic 31 gauge x #400 each 03/07/20 04/11/21 Rx 3/16 dulaglutide 1.5 mg/0.5 mL 1.5 mg SUB-Q WEEKLY #6 ml 10/07/20 04/11/21 Rx subcutaneous pen injector empagliflozin 25 mg-metformin ER 1 tablet PO DAILY #90 each 10/08/20 04/11/21 Rx 1,000 mg tablet,extended release 24hr insulin glargine U-300 conc 300 80 unit SUB-Q DAILY 90 Days 10/08/20 04/11/21 Rx unit/mL (1.5 mL) subcutaneous pen #24.003 ml rosuvastatin 20 mg tablet 20 mg PO DAILY #90 tablet 01/01/21 04/11/21 Rx pen needle, diabetic 29 gauge x #200 each 04/04/21 04/11/21 Rx 1/2 aspirin 81 mg PO DAILY 04/11/21 04/11/21 History cholecalciferol (vitamin D3) 25 mcg PO DAILY 04/11/21 04/11/21 History [Vitamin D3] escitalopram oxalate 10 mg PO DAILY 04/11/21 04/11/21 History insulin lispro [Humalog KwikPen 18 unit SUBCUT BIDWM 04/11/21 04/11/21 History Insulin] lisinopril 10 mg PO DAILY 04/11/21 04/11/21 History Laboratory Tests 04/11/21 04/12/21 04/12/21 13:52 01:27 02:17 WBC RBC Hgb Hct MCV MCH MCHC RDW Plt Count MPV Immature Gran % (Auto) Neut % (Auto) Lymph % (Auto) [place] % (Auto) Eos % (Auto) Baso % (Auto) Lymph # (Auto) [place] # (Auto) Eos # (Auto) Baso # (Auto) Abs Immat Gran (auto) Absolute Neuts (auto) Absolute Nucleated RBC Nucleated RBC % Sodium Potassium Chloride Carbon Dioxide Anion Gap BUN Creatinine Estim Creat Clear Calc Estimated GFR Glucose POC Capillary Glucose 229 mg/dl H mg/dl 190 mg/dl H mg/dl (65-105) (65-105) Calcium Magnesium Total Bilirubin AST ALT Alkaline Phosphatase C-Reactive Protein Total Protein Albumin SARS-CoV-2 RNA (RT-PCR) Negative 04/12/21 04/12/21 04/12/21 04:17 05:05 05:56 WBC 14.1 K/mm3 H K/mm3 (4.5-10.0) RBC 3.78 M/mm3 L M/mm3 (4.6-6.20) Hgb 12.1 g/dL L g/dL (14.0-18.0) Hct 34.2 % L % (42.0-52.0) MCV 90.5 fl fl (80-100) MCH 32.0 pg pg (26-34) MCHC 35.4 g/dl g/dl (32-36) RDW 11.7 % % (11.5-14.5) Plt Count 199 k/mm3 k/mm3 (150-375) MPV 10.6 fl H fl (7.4-10.4) Immature Gran % (Auto) 0.9 % H % (0-0.5) Neut % (Auto) 81.2 % H % (45.5-73.1) Lymph % (Auto) 7.7 % L % (18.3-44.2) [place]verse % (Auto) 10.0 % H % (2.6-8.5) Eos % (Auto) 0.0 % % (0-4.4) Baso % (Auto) 0.2 % % (0.2-1.2) Lymph # (Auto) 1.09 K/mm3 K/mm3 (0.9-3.2) [place] # (Auto) 1.4 K/mm3 H K/mm3 (0.1-0.6) Eos # (Auto) 0.0 K/mm3 K/mm3 (0-0.3) Baso # (Auto) 0.0 K/mm3 K/mm3 (0.0-0.1) Abs
[2021-04-13] MEDS: ROSUVASTATIN 10 MG TABLET 20 MG PO (08:26)
[2021-04-13] MEDS: ESCITALOPRAM OXALATE 10 MG TABLET PO (08:26)
--- NOTE | 2021-04-13 09:05 | PC.NURSE ---
To OR per bed, IV site inaccessible at time. Transported at 0904. Receiving RN aware. Report given to MARLY Giraldo.
--- NOTE | 2021-04-13 09:14 | WPDHPUPDATE1 ---
History and Physical Update Update Date/Time: 04/13/21 09:14 History and Physical has been reviewed, including an updated exam of the patient. There are NO changes in the patient's condition. Risks, benefits, and alternatives have been discussed and questions answered. Patient agrees to proceed with procedure.
--- NOTE | 2021-04-13 09:54 | WPDANESEPPF ---
Anes - Initial Pre Proc Eval Procedure: Operation Date: 04/13/21 09:30 Proposed Procedures p Incision and Debridement of Back Abscess - Ar Kelly MD Date/Time: 04/13/21 09:54 Pre Op Diagnosis: DKA/ Abscess and cellulitis of left upper back Patient Data Age: 66 Gender: M Height: 1.85 m Weight: 98.1 kg Last Vital Signs Temp 36.9 C 04/13/21 05:41 Pulse 69 04/13/21 05:41 Resp 20 04/13/21 05:41 BP 126/67 04/13/21 05:41 Pulse Ox 96 04/13/21 05:41 Allergies Allergy/AdvReac Type Severity Reaction Status Date / Time levofloxacin Allergy Unknown rash Verified 06/06/20 08:55 Home Medications Medication Instructions Recorded Confirmed Type blood sugar diagnostic #360 each 09/04/19 04/11/21 Rx blood-glucose meter #1 each 09/04/19 04/11/21 Rx pen needle, diabetic 31 gauge x #400 each 03/07/20 04/11/21 Rx 3/16 dulaglutide 1.5 mg/0.5 mL 1.5 mg SUB-Q WEEKLY #6 ml 10/07/20 04/11/21 Rx subcutaneous pen injector empagliflozin 25 mg-metformin ER 1 tablet PO DAILY #90 each 10/08/20 04/11/21 Rx 1,000 mg tablet,extended release 24hr insulin glargine U-300 conc 300 80 unit SUB-Q DAILY 90 Days 10/08/20 04/11/21 Rx unit/mL (1.5 mL) subcutaneous pen #24.003 ml rosuvastatin 20 mg tablet 20 mg PO DAILY #90 tablet 01/01/21 04/11/21 Rx pen needle, diabetic 29 gauge x #200 each 04/04/21 04/11/21 Rx 1/2 aspirin 81 mg PO DAILY 04/11/21 04/11/21 History cholecalciferol (vitamin D3) 25 mcg PO DAILY 04/11/21 04/11/21 History [Vitamin D3] escitalopram oxalate 10 mg PO DAILY 04/11/21 04/11/21 History insulin lispro [Humalog KwikPen 18 unit SUBCUT BIDWM 04/11/21 04/11/21 History Insulin] lisinopril 10 mg PO DAILY 04/11/21 04/11/21 History Laboratory Tests 04/11/21 04/12/21 04/12/21 13:52 09:52 10:24 WBC RBC Hgb Hct MCV MCH MCHC RDW Plt Count MPV Sodium 131 mmol/L L mmol/L (137-145) Potassium 3.4 mmol/L mmol/L (3.4-5.0) Chloride 99 mmol/L mmol/L (98-107) Carbon Dioxide 27 mmol/L mmol/L (22-30) Anion Gap 5 mmol/L L mmol/L (8-16) BUN 43 mg/dL H mg/dL (9-20) Creatinine 1.00 mg/dL mg/dL (0.7-1.3) Estim Creat Clear Calc 74 ml/min ml/min Estimated GFR > 60 (59 - ) Glucose 128 mg/dL H mg/dL (65-110) POC Capillary Glucose 112 mg/dl H mg/dl (65-105) Calcium 8.0 mg/dL L mg/dL (8.4-10.2) Magnesium Total Bilirubin AST ALT Alkaline Phosphatase Total Protein Albumin SARS-CoV-2 RNA (RT-PCR) Negative 04/12/21 04/12/21 04/12/21 11:26 12:23 13:22 WBC RBC Hgb Hct MCV MCH MCHC RDW Plt Count MPV Sodium Potassium Chloride Carbon Dioxide Anion Gap BUN Creatinine Estim Creat Clear Calc Estimated GFR Glucose POC Capillary Glucose 93 mg/dl mg/dl 85 mg/dl mg/dl 98 mg/dl mg/dl (65-105) (65-105) (65-105) Calcium Magnesium Total Bilirubin AST ALT Alkaline Phosphatase Total Protein Albumin SARS-CoV-2 RNA (RT-PCR) 04/12/21 04/12/21 04/12/21 14:41 17:54 22:13 WBC RBC Hgb Hct MCV MCH MCHC RDW Plt Count MPV Sodium Potassium Chloride Carbon Dioxide Anion Gap BUN Creatinine
[2021-04-13] MEDS: LACTATED RINGERS 1,000 ML 30 ML IV CONT (10:00)
--- NOTE | 2021-04-13 10:13 | PM.IMPN ---
Progress Note: A&P Assessment and Plan (1) DKA (diabetic ketoacidosis): Qualifiers: Diabetes mellitus complication detail: without coma Diabetes mellitus type: other specified (including CELESTE) Qualified Code(s): E13.10 - Other specified diabetes mellitus with ketoacidosis without coma Code(s): E11.10 - Type 2 diabetes mellitus with ketoacidosis without coma Status: Acute Assessment and Plan: Patient was started on DKA protocol overnight in the form of IV fluids and insulin infusion Anion gap has closed but patient's insulin drip is at 14 units/hour. He denies any symptom but does not feel appetite to eat at this time Start Lantus 80 units subQ q.a.m.. Continue insulin infusion for now until patient starts eating and insulin drip is at a lower rate Change IV fluids to normal saline with KCl Advance diet as tolerated His A1c is 10 Consult senior health educator later in the course of the hospitalization (2) Cellulitis and abscess of other specified site: Code(s): L03.818 - Cellulitis of other sites; L02.818 - Cutaneous abscess of other sites Status: Acute Assessment and Plan: Abscess noted to the left lateral upper back near the scapula. General surgery was consulted from ER to evaluate for I&D The abscess appears to be slightly open now with purulent drainage I tried to press rounding area but only minimal amount of drainage came Continue imipenem and and vancomycin Blood cultures are pending. Wound culture will be ordered (3) Suspected COVID-19 virus infection: Code(s): Z20.822 - Contact with and (suspected) exposure to COVID-19 Status: Acute Assessment and Plan: The patient has been falling vaccinated. Waiting on COVID PCR. Droplet and contact isolation has been initiated. (4) Chronic renal disease: Code(s): N18.9 - Chronic kidney disease, unspecified Status: Chronic Assessment and Plan: Creatinine appears to have improved to normal level with IV fluid (5) Hypertension: Code(s): I10 - Essential (primary) hypertension Status: Chronic Assessment and Plan: Currently blood pressure is in range P.r.n. hydralazine. Lisinopril is on hold at this time (6) Mixed hyperlipidemia: Code(s): E78.2 - Mixed hyperlipidemia Status: Acute Assessment and Plan: Resume rosuvastatin (7) Depression with anxiety: Code(s): F41.8 - Other specified anxiety disorders Status: Acute Assessment and Plan: Continue with home medications once the patient is no longer NPO. Additional Plan 04/12/2021 DVT prophylaxis -Lovenox subQ Nutrition -advance diet as tolerated Code Status - Full Code Will continue current plan of care and treatment. COVID test pending. 04/13/2021 Patient is scheduled for I and D today. Sugar is getting better. Electrolytes are stable. COVID test is negative. Plan is to continue IV antibiotics and monitor labs. Subjective Date/time seen: 04/13/21 10:13 Patient was seen during the morning rounds today. Patient is scheduled for surgery I and D today. Patient then shortness of breath or chest pain. No abdominal pain, no nausea, no vomiting. Mood stable. Review of Systems Review of Systems: All systems reviewed & are unremarkable except as noted in HPI and below Constitutional: Constitutional: Reports as per HPI and Reports no additional constitutional complaints Eyes: Eyes: Reports as per HPI and Reports no additional eye complaints ENT: Reports system reviewed and no additional complaints, except as documented and Reports Normal hearing present Cardiovascular: Cardiovascular: Reports no additional cardiovascular complaints Respiratory: Respiratory: Reports no additional respiratory complaints and Reports no additional respiratory complaints Gastrointestinal: Gastrointestinal: Reports as per HPI and Reports no additional gastrointestinal complaints Musculoskeletal: Musculoske
--- NOTE | 2021-04-13 10:27 | W.PM.PROC2 ---
Procedure Note - Detailed Date of Procedure 04/13/21 Pre-op Diagnosis Abscess left upper back Post-op Diagnosis same Procedure Performed Incision and drainage complex left back abscess Surgeon Ar Kelly MD Descriptive Catalog Librarian Rebecca Ruiz [facility] Anesthesia general Indications Patient is a 66-year-old man who has had pain in the left upper back for nearly a week when he came to the emergency room. By that time his diabetes had become severely out of control and he was in diabetic ketoacidosis. This has been treated and he has been able to move out of the intensive care unit. He was also tested for COVID-19 and this came back negative last night. He was noted to have a large deep abscess in the left upper back medial to the scapula. He is taken to surgery now for incision and drainage. Findings Large deep subcutaneous abscess left upper back Description of Procedure Patient was taken to surgery and induced into general anesthesia. He was then turned so he was in a right lateral decubitus position and the abscess was well exposed as was virtually the entire back area. Prep and drape was carried out. There was a tiny area of drainage in the center of the abscess. This area was somewhat fluctuant as well. The abscess was deep lying on the musculature and just below the subcutaneous. Incision there was made and copious amounts of yellow purulent fluid drained. Cultures and Gram stain of this were obtained. The incision was slightly enlarged and I was able to place the suction in the abscess cavity and suctioned away the remainder of the purulent fluid. I was then able to the place a finger in the abscess cavity and break down any residual loculations. The cavity was then thoroughly irrigated with warm saline. It was packed with 2 in iodoform Nu gauze. Bulky fluff and ABD dressings were placed. The patient returned to a supine position, he was awakened and transferred to recovery in good condition. No complications were noted. Counts were correct x2. Estimated Blood Loss 10 Urine Output 500 Drains No Packing Yes (2 in iodoform Nu Gauze packing) Pathology other (Cultures for aerobes, anaerobes, and Gram stain were sent) Complications None Condition stable Disposition PACU
[2021-04-13] MEDS: fentaNYL CITRATE INJ (*CRX) 100 MCG/2 ML VIAL 25 MCG IV PUSH ×2 (10:54→11:05)
[2021-04-13 11:00] LABS: Glucose Point of Care 278 mg/dl (65-105)
--- NOTE | 2021-04-13 11:41 | PC.NURSE ---
Returned from OR per bed. Report received from MARLY Giraldo.
[2021-04-13 12:17] LABS: Glucose Point of Care 304 mg/dl (65-105)
[2021-04-13] MEDS: INSULIN GLARGINE (*BKC) 100 UNITS/ML 80 UNITS SUB-Q (12:20)
[2021-04-13] MEDS: ENOXAPARIN 40 MG/0.4 ML SYRINGE SUB-Q (12:20)
[2021-04-13 16:49] LABS: Glucose Point of Care 227 mg/dl (65-105)
[2021-04-13] MEDS: HYDROcodone/acetaminophen (*CRX) 5-325 MG TABLET 1 TAB PO (17:33)
[2021-04-13 21:15] LABS: Glucose Point of Care 322 mg/dl (65-105)
[2021-04-13] MEDS: FAMOTIDINE 20 MG TABLET PO (21:58)
[2021-04-14] MEDS: HYDROcodone/acetaminophen (*CRX) 10-325 MG TABLET 1 TAB PO ×4 (02:37→23:41)
[2021-04-14 06:00] VITALS: BP 121/65; PULSE 72; RESP 16; TEMP 37.2; O2SAT 99
[2021-04-14 06:38] LABS: Hematocrit 36.4 % (42.0-52.0); Hemoglobin 12.5 g/dL (14.0-18.0); Mean Corpuscular HGB Conc 34.3 g/dl (32-36); Mean Corpuscular Hemoglobin 32.6 pg (26-34); Mean Platelet Volume 10.6 fl (7.4-10.4); Platelet Count Result 228 k/mm3 (150-375); Red Blood Count 3.83 M/mm3 (4.6-6.20); Red Cell Distribution Width 12.2 % (11.5-14.5); White Blood Count 16.6 K/mm3 (4.5-10.0)
[2021-04-14 06:52] LABS: Alanine Aminotransferase 19 U/L (4-50); Albumin Level 2.6 g/dL (3.5-5.1); Alkaline Phosphatase 109 U/L (38-126); Anion Gap 7 mmol/L (8-16); Aspartate Amino Transferase 30 U/L (17-59); Bilirubin,Total 0.5 mg/dL (0.2-1.3); Blood Urea Nitrogen 37 mg/dL (9-20); Calcium 7.8 mg/dL (8.4-10.2); Carbon Dioxide 27 mmol/L (22-30); Chloride 93 mmol/L (98-107); Estimated CRCL calculation 67 ml/min; Estimated Glomerular Filt Rate > 60; Glucose 219 mg/dL (65-110); Magnesium 2.1 mg/dL (1.6-2.3); Potassium 3.5 mmol/L (3.4-5.0); Sodium 127 mmol/L (137-145)
[2021-04-14 07:52] LABS: Glucose Point of Care 236 mg/dl (65-105)
[2021-04-14] MEDS: INSULIN GLARGINE (*BKC) 100 UNITS/ML 80 UNITS SUB-Q (08:13)
[2021-04-14] MEDS: ENOXAPARIN 40 MG/0.4 ML SYRINGE SUB-Q (08:13)
[2021-04-14] MEDS: FAMOTIDINE 20 MG TABLET PO ×2 (08:13→20:57)
[2021-04-14] MEDS: ROSUVASTATIN 10 MG TABLET 20 MG PO (08:13)
[2021-04-14] MEDS: ESCITALOPRAM OXALATE 10 MG TABLET PO (08:13)
[2021-04-14] MEDS: INSULIN ASPART (*BKC) 100 UNITS/ML SUB-Q ×2 (08:13→20:52)
[2021-04-14 08:20] VITALS: O2SAT 96
--- NOTE | 2021-04-14 09:49 | WPDANESPN ---
Anes - Prog Note Post-Op Date/Time: 04/14/21 09:49 Cardiovascular status: normal Respiratory status: normal Airway patency: baseline Mental status: baseline Post-Op hydration status: normal Vital Signs: Last Vital Signs Temp 37.2 C 04/14/21 06:00 Pulse 72 04/14/21 06:00 Resp 16 04/14/21 06:00 BP 121/65 04/14/21 06:00 Pulse Ox 99 04/14/21 06:00 Pain Score (VAS): no COMPLAINTS I/O: Intake & Output 04/13/21 04/14/21 04/14/21 23:59 07:59 15:59 Intake Total 890 350 Balance 890 350 Laboratory Tests 04/14/21 05:47 04/14/21 05:47 04/13/21 04/13/21 04/13/21 10:58 11:53 16:43 WBC RBC Hgb Hct MCV MCH MCHC RDW Plt Count MPV Sodium Potassium Chloride Carbon Dioxide Anion Gap BUN Creatinine Estim Creat Clear Calc Estimated GFR Glucose POC Capillary Glucose 278 H 304 H 227 H Calcium Magnesium Total Bilirubin AST ALT Alkaline Phosphatase Total Protein Albumin 04/13/21 04/14/21 04/14/21 20:08 05:47 05:47 WBC 16.6 H RBC 3.83 L Hgb 12.5 L Hct 36.4 L MCV 95.0 MCH 32.6 MCHC 34.3 RDW 12.2 Plt Count 228 MPV 10.6 H Sodium 127 L Potassium 3.5 Chloride 93 L Carbon Dioxide 27 Anion Gap 7 L BUN 37 H Creatinine 1.10 Estim Creat Clear Calc 67 Estimated GFR > 60 Glucose 219 H POC Capillary Glucose 322 H Calcium 7.8 L Magnesium 2.1 Total Bilirubin 0.5 AST 30 ALT 19 Alkaline Phosphatase 109 Total Protein 6.0 L Albumin 2.6 L 04/14/21 07:41 WBC RBC Hgb Hct MCV MCH MCHC RDW Plt Count MPV Sodium Potassium Chloride Carbon Dioxide Anion Gap BUN Creatinine Estim Creat Clear Calc Estimated GFR Glucose POC Capillary Glucose 236 H Calcium Magnesium Total Bilirubin AST ALT Alkaline Phosphatase Total Protein Albumin Microbiology 04/13/21 10:23 Back Anaerobic Culture - Preliminary 04/11/21 13:52 Blood Blood Culture - Preliminary 04/12/21 10:27 Abscess Wound Culture - Preliminary Post-procedural complaints: none Patient Feedback: Patient satisfied with anesthetic care.
--- NOTE | 2021-04-14 11:30 | PCDIET ---
Dietitian consult for DKA. See Nutritional Teaching Intervention. Thank you for the consult.
[2021-04-14 11:51] LABS: Glucose Point of Care 195 mg/dl (65-105)
[2021-04-14] MEDS: INSULIN ASPART (*BKC) 100 UNITS/ML 12 UNITS SUB-Q (12:14)
--- NOTE | 2021-04-14 12:57 | PC.NURSE ---
Outpatient referral for initial DSMT AND MNT started. [facility].
[2021-04-14 14:00] VITALS: BP 121/65; PULSE 77; RESP 16; TEMP 36.2; O2SAT 96
[2021-04-14 14:09] LABS: Sodium 127 mmol/L (137-145)
--- NOTE | 2021-04-14 14:44 | P.PNIM_ITS ---
Progress Note: A&P Assessment and Plan (1) DKA (diabetic ketoacidosis): Qualifiers: Diabetes mellitus complication detail: without coma Diabetes mellitus type: other specified (including CELESTE) Qualified Code(s): E13.10 - Other specified diabetes mellitus with ketoacidosis without coma Code(s): E11.10 - Type 2 diabetes mellitus with ketoacidosis without coma Status: Acute Assessment and Plan: Found to be in DKA at presentation and was admitted to the intensive care unit. Fasting glucose 120 this morning * Anion gap closed and insulin drip discontinued. He is now stable on the medical floor. * Continue with Lantus 80 units q.AM * Patient takes Humalog 18 units b.i.d. at home (typically only eats breakfast and dinner). Will transition to 6 units t.i.d. with meals during inpatient hospitalization * A1c is 10.0 * Continue diabetic diet * Will proceed with consultation to solutions executive cloud sales * Blood sugar stable today 120-190 (2) Cellulitis and abscess of other specified site: Code(s): L03.818 - Cellulitis of other sites; L02.818 - Cutaneous abscess of other sites Status: Acute Assessment and Plan: Abscess noted to the left lateral upper back near the scapula. * Seen in consultation by General surgery. Input is appreciated * S/p I&D in the OR on 04/13/[address] Kelly * Continue with Zosyn * Intraoperative wound culture pending (3) Positive blood culture: Code(s): R78.81 - Bacteremia Status: Acute Assessment and Plan: 1 blood culture bottle with growth of Gram-positive cocci, 1 follow-up with growth of Gram-positive bacilli * Vancomycin added. Continue IV vancomycin and Zosyn * Await further identification from blood cultures * Consider infectious disease consultation based on results (4) Chronic renal disease: Code(s): N18.9 - Chronic kidney disease, unspecified Status: Chronic Assessment and Plan: Creatinine is stable with GFR >60 * Monitor BMP (5) Hypertension: Code(s): I10 - Essential (primary) hypertension Status: Chronic Assessment and Plan: Blood pressure has been well controlled. Last BP 116/58 * Continue lisinopril * Monitor blood pressure trends closely (6) COVID-19 ruled out by laboratory testing: Code(s): Z20.822 - Contact with and (suspected) exposure to COVID-19 Status: Acute Assessment and Plan: Negative test on 04/11/2021 * Isolation precautions discontinued (7) Hyponatremia: Code(s): E87.1 - Hypo-osmolality and hyponatremia Status: Acute Assessment and Plan: Persistently low this hospitalization ranging from 126-131. Sodium improved today at 134. * Urine sodium and creatinine reviewed. FENa is 0.1% * Holding SSRI * 1500 cc fluid restriction implemented per general surgery. * Repeat BMP tomorrow and monitor sodium levels closely Subjective Date/time seen: 04/14/21 14:44 Interval history: Date of service: 04/14/2021 Suhas danielle this 66-year-old male with a history of diabetes mellitus, COPD, CKD, hypertension, hyperlipidemia who is seen in follow-up for DKA and abscess of left upper back. He is feeling well today. He reports 5/10 pain in his back where his abscess was drained. Earlier this morning it was approximately 7.5/10. Otherwise, he has no concerns. Denies nausea, vomiting, fever, or chills. No abdominal pain. He has been having looser stools today. Denies urinary symptoms. No shortness of
--- NOTE | 2021-04-14 14:44 | PM.IMPN ---
Progress Note: A&P Assessment and Plan (1) DKA (diabetic ketoacidosis): Qualifiers: Diabetes mellitus complication detail: without coma Diabetes mellitus type: other specified (including CELESTE) Qualified Code(s): E13.10 - Other specified diabetes mellitus with ketoacidosis without coma Code(s): E11.10 - Type 2 diabetes mellitus with ketoacidosis without coma Status: Acute Assessment and Plan: Found to be in DKA at presentation and was admitted to the intensive care unit. Fasting glucose 120 this morning Anion gap closed and insulin drip discontinued. He is now stable on the medical floor. Continue with Lantus 80 units q.AM Patient takes Humalog 18 units b.i.d. at home (typically only eats breakfast and dinner). Will transition to 6 units t.i.d. with meals during inpatient hospitalization A1c is 10.0 Continue diabetic diet Will proceed with consultation to tobacco prevention health educator Blood sugar stable today 120-190 (2) Cellulitis and abscess of other specified site: Code(s): L03.818 - Cellulitis of other sites; L02.818 - Cutaneous abscess of other sites Status: Acute Assessment and Plan: Abscess noted to the left lateral upper back near the scapula. Seen in consultation by General surgery. Input is appreciated S/p I&D in the OR on 04/13/[address] Kelly Continue with Zosyn Intraoperative wound culture pending (3) Positive blood culture: Code(s): R78.81 - Bacteremia Status: Acute Assessment and Plan: 1 blood culture bottle with growth of Gram-positive cocci, 1 follow-up with growth of Gram-positive bacilli Vancomycin added. Continue IV vancomycin and Zosyn Await further identification from blood cultures Consider infectious disease consultation based on results (4) Chronic renal disease: Code(s): N18.9 - Chronic kidney disease, unspecified Status: Chronic Assessment and Plan: Creatinine is stable with GFR >60 Monitor BMP (5) Hypertension: Code(s): I10 - Essential (primary) hypertension Status: Chronic Assessment and Plan: Blood pressure has been well controlled. Last BP 116/58 Continue lisinopril Monitor blood pressure trends closely (6) COVID-19 ruled out by laboratory testing: Code(s): Z20.822 - Contact with and (suspected) exposure to COVID-19 Status: Acute Assessment and Plan: Negative test on 04/11/2021 Isolation precautions discontinued (7) Hyponatremia: Code(s): E87.1 - Hypo-osmolality and hyponatremia Status: Acute Assessment and Plan: Persistently low this hospitalization ranging from 126-131. Sodium improved today at 134. Urine sodium and creatinine reviewed. FENa is 0.1% Holding SSRI 1500 cc fluid restriction implemented per general surgery. Repeat BMP tomorrow and monitor sodium levels closely Subjective Date/time seen: 04/14/21 14:44 Interval history: Date of service: 04/14/2021 Suhas danielle this 66-year-old male with a history of diabetes mellitus, COPD, CKD, hypertension, hyperlipidemia who is seen in follow-up for DKA and abscess of left upper back. He is feeling well today. He reports 5/10 pain in his back where his abscess was drained. Earlier this morning it was approximately 7.5/10. Otherwise, he has no concerns. Denies nausea, vomiting, fever, or chills. No abdominal pain. He has been having looser stools today. Denies urinary symptoms. No shortness of breath, cough, chest pain. Appetite has been good. He denies weakness, dizziness, lightheadedness. Review of Systems Review of Systems: All systems reviewed & are unremarkable except as noted in HPI and below Exam Narrative: Mr. Danielle is a well-nourished, well-appearing 66-year-old male who is lying supine in bed. He appears comfortable and is in NARD. Neuro: awake, alert and oriented x4, speech clear, no focal neuro deficits noted
--- NOTE | 2021-04-14 15:05 | PM.PNGS ---
Progress Note: A&P Assessment and Plan (1) Abscess of upper back excluding scapular region: Code(s): L02.212 - Cutaneous abscess of back [any part, except buttock] Status: Acute Assessment and Plan: Dressing and packing changed today. There is still a significant amount of drainage that is draining well from the incision. Will continue with daily packing of 2 iodoform gauze for now and monitor. Continue IV antibiotics. Would not expect him to require packing for dressing changes once eventually discharged home. (2) Uncontrolled diabetes mellitus: Qualifiers: Diabetes mellitus type: type 2 Glycemic state: with hyperglycemia Qualified Code(s): E11.65 - Type 2 diabetes mellitus with hyperglycemia Code(s): E11.65 - Type 2 diabetes mellitus with hyperglycemia Status: Chronic Assessment and Plan: Uncontrolled diabetic who presented in DKA, with a hgb A1C of 10. Now out of ICU and off the insulin drip. Glucose in the 200-300's over the past 24 hours. Management per Hospitalist. Discussed the importance of glycemic control with the patient. (3) Suspected COVID-19 virus infection: Code(s): Z20.822 - Contact with and (suspected) exposure to COVID-19 Status: Acute Assessment and Plan: COVID-19 results negative. Additional Plan I have discussed the plan of care with Dr. Kelly. Subjective Subjective Date/Time Seen: 04/14/21 13:05 Post Op day: 1 (I&D complex back abscess) Patient reports: no new complaints, feels better, pain is less and afebrile Interval history: Patient seen and examined today. Recently received [place] for pain control and preparation for dressing change. The patient reports his pain in his back is better today and he feels more comfortable. No other complaints at this time. Review of Systems Review of Systems: All systems reviewed & are unremarkable except as noted in HPI and below Constitutional: Constitutional: Reports no additional constitutional complaints, Denies chills, Denies fever(s) and Denies headache(s) Exam Const: General: no acute distress, alert and awake Orientation/consciousness: patient oriented x3 Back/Spine/Pelvis: Other: Large amount of serosanguineous drainage on back dressing soaking through to the linens. Dressing and packing removed from cruciate incision. No bleeding noted. Some foul purulent drainage on packing, but no remaining loculations when probing. Repacked with 2 iodoform gauze and covered with 4x4, ABD, and tape. Neuro: General: moves all extremities and no focal motor deficits Extrem: General: no clubbing, cyanosis or edema Psych: Mental Status: mental status grossly normal Insight: Good insight present (Psych) Judgement: Good judgement present (Psych) Objective Data Vital Signs Vital Signs: Vital Signs - 24 hr 04/13/21 17:26 04/13/21 22:00 04/14/21 06:00 Temperature 97.8 F 97.1 F L 98.9 F Pulse Rate 84 81 72 Respiratory Rate 12 16 16 Blood Pressure 121/70 128/65 121/65 Pulse Oximetry 99 100 99 Intake/Output Intake/Output: Intake & Output 04/11/21 04/12/21 04/13/21 04/14/21 23:59 23:59 23:59 23:59 Intake Total 3400 3260 2240 830 Output Total 1800 500 Balance 3400 1460 1740 830 Meds/Results Medications: Active Medications Generic Name Dose Route Start Last Admin Trade Name Freq PRN Reason Stop Dose Admin Acetaminophen 500 mg 04/13/21 11:30 Acetaminophen 500 Mg Tablet PO Q6H PRN Mild Pain (1-3) or Fever Hydrocodone Bitart/Acetaminophen 1 tab 04/13/21 11:30 04/13/21 17:33 Hydrocodone/Acetaminophen (*Crx) 5-325 Mg Tablet PO 1 tab Q4H PRN Administration Pain Rated 4-6 Hydrocodone Bitart/Acetaminophen 1 tab 04/13/21 11:30 04/14/21 12:15 Hydrocodone/Acetaminophen (*Crx) 10-325 Mg Tablet PO 1 tab Q4H PRN Administration Pain Rated 7-10 Enoxaparin Sodium 40 mg 04/12/21 09:00 04/14/21 08:13 Enoxaparin 40 Mg/0.4 Ml Syringe SUB-Q 40 mg
[2021-04-14 17:07] LABS: Glucose Point of Care 138 mg/dl (65-105)
[2021-04-14 20:29] LABS: Creatinine Urine 44.1 mg/dL
[2021-04-14 20:30] LABS: Sodium Urine Random 6 meq/L
[2021-04-14 20:43] LABS: Glucose Point of Care 287 mg/dl (65-105)
[2021-04-14 21:58] VITALS: BP 114/67; PULSE 66; RESP 20; TEMP 36.7; O2SAT 99
[2021-04-15] MEDS: HYDROcodone/acetaminophen (*CRX) 10-325 MG TABLET 1 TAB PO ×2 (05:26→11:25)
[2021-04-15 06:00] VITALS: BP 130/72; PULSE 64; RESP 20; TEMP 36.7; O2SAT 98
[2021-04-15 06:39] LABS: Hematocrit 37.8 % (42.0-52.0); Hemoglobin 12.9 g/dL (14.0-18.0); Mean Corpuscular HGB Conc 34.1 g/dl (32-36); Mean Corpuscular Hemoglobin 31.5 pg (26-34); Mean Corpuscular Volume 92.4 fl (80-100); Mean Platelet Volume 10.2 fl (7.4-10.4); Platelet Count Result 277 k/mm3 (150-375); Red Blood Count 4.09 M/mm3 (4.6-6.20); Red Cell Distribution Width 11.9 % (11.5-14.5); White Blood Count 12.7 K/mm3 (4.5-10.0)
[2021-04-15 06:49] LABS: Alanine Aminotransferase 21 U/L (4-50); Albumin Level 2.8 g/dL (3.5-5.1); Alkaline Phosphatase 105 U/L (38-126); Anion Gap 8 mmol/L (8-16); Aspartate Amino Transferase 30 U/L (17-59); Bilirubin,Total 0.5 mg/dL (0.2-1.3); Blood Urea Nitrogen 32 mg/dL (9-20); Calcium 8.1 mg/dL (8.4-10.2); Carbon Dioxide 31 mmol/L (22-30); Chloride 95 mmol/L (98-107); Estimated CRCL calculation 67 ml/min; Estimated Glomerular Filt Rate > 60; Glucose 120 mg/dL (65-110); Potassium 3.4 mmol/L (3.4-5.0); Sodium 134 mmol/L (137-145)
[2021-04-15 08:48] LABS: Glucose Point of Care 102 mg/dl (65-105)
[2021-04-15] MEDS: INSULIN ASPART (*BKC) 100 UNITS/ML 6 UNITS SUB-Q ×3 (09:17→17:27)
[2021-04-15] MEDS: INSULIN GLARGINE (*BKC) 100 UNITS/ML 80 UNITS SUB-Q (09:17)
[2021-04-15] MEDS: ENOXAPARIN 40 MG/0.4 ML SYRINGE SUB-Q (09:19)
[2021-04-15] MEDS: FAMOTIDINE 20 MG TABLET PO ×2 (09:20→22:00)
[2021-04-15] MEDS: ROSUVASTATIN 10 MG TABLET 20 MG PO (09:20)
[2021-04-15] MEDS: lisinopriL 10 MG TABLET PO (09:20)
[2021-04-15 12:08] LABS: Glucose Point of Care 149 mg/dl (65-105)
[2021-04-15 14:00] VITALS: BP 116/58; PULSE 71; RESP 14; TEMP 36.2; O2SAT 100
--- NOTE | 2021-04-15 16:19 | PM.PNGS ---
Progress Note: A&P Assessment and Plan (1) Abscess of upper back excluding scapular region: Code(s): L02.212 - Cutaneous abscess of back [any part, except buttock] Status: Acute Assessment and Plan: Well drained and slowly healing. Will discontinue packing but have dry gauze dressings placed twice a day as there were still quite a bit of drainage. Patient does not need long-term IV antibiotics from my perspective. Subjective Subjective Date/Time Seen: 04/15/21 16:19 Patient reports: no new complaints, feels better and pain is less Exam Back/Spine/Pelvis: Back: No erythema, No warmth, back tenderness (Minimal) and other ( abscess dressing changed, still quite a bit of drainage but no purulence) Other: Back abscess well drained, healing. stop packing and use daily gauze dressings. Objective Data Vital Signs Vital Signs: Vital Signs - 24 hr 04/14/21 21:58 04/15/21 06:00 04/15/21 14:00 Temperature 36.7 C 36.7 C 36.2 C L Pulse Rate 66 64 71 Respiratory Rate 20 20 14 Blood Pressure 114/67 130/72 116/58 L Pulse Oximetry 99 98 100 Intake/Output Intake/Output: Intake & Output 04/12/21 04/13/21 04/14/21 04/15/21 23:59 23:59 23:59 23:59 Intake Total 3260 2240 3990 1926 Output Total 1800 500 600 Balance 1460 1740 3990 1326 Meds/Results Medications: Active Medications Generic Name Dose Route Start Last Admin Trade Name Freq PRN Reason Stop Dose Admin Acetaminophen 500 mg 04/13/21 11:30 Acetaminophen 500 Mg Tablet PO Q6H PRN Mild Pain (1-3) or Fever Hydrocodone Bitart/Acetaminophen 1 tab 04/13/21 11:30 04/13/21 17:33 Hydrocodone/Acetaminophen (*Crx) 5-325 Mg Tablet PO 1 tab Q4H PRN Administration Pain Rated 4-6 Hydrocodone Bitart/Acetaminophen 1 tab 04/13/21 11:30 04/15/21 11:25 Hydrocodone/Acetaminophen (*Crx) 10-325 Mg Tablet PO 1 tab Q4H PRN Administration Pain Rated 7-10 Enoxaparin Sodium 40 mg 04/12/21 09:00 04/15/21 09:19 Enoxaparin 40 Mg/0.4 Ml Syringe SUB-Q 40 mg DAILY KRISTIN Administration Escitalopram Oxalate 10 mg 04/13/21 09:00 04/14/21 08:13 Escitalopram Oxalate 10 Mg Tablet PO 10 mg DAILY KRISTIN Administration Famotidine 20 mg 04/13/21 21:00 04/15/21 09:20 Famotidine 20 Mg Tablet PO 20 mg Q12HR KRISTIN Administration Glucagon 1 mg 04/11/21 21:43 Glucagon For Inj 1 Mg Vial IM PRN PRN Hypoglycemia Protocol Hydralazine HCl 10 mg 04/11/21 22:09 Hydralazine Hcl 20 Mg/Ml Vial IV PUSH Q8H PRN Blood Pressure - High Piperacillin/Tazobactam/Dextrose 3.375 gm in 50 mls @ 100 mls/hr 04/13/21 12:00 04/15/21 11:53 Zosyn 3.375 Gm/D5w 50ml Pm IVPB Infused Q6HR KRISTIN Infusion Vancomycin HCl 1,500 mg in 500 mls @ 333.333 mls/hr 04/14/21 20:00 04/15/21 15:44 Vancomycin 1,500 Mg/D5w 500 Ml IVPB Infused Q18H KRISTIN Infusion Insulin Aspart 6 units 04/14/21 17:00 04/15/21 11:53 Insulin Aspart (*Bkc) 100 Units/Ml SUB-Q 6 units TID[facility] Administration Insulin Aspart 4 - 8 units 04/15/21 08:00 04/15/21 11:55 Insulin Aspart (*Bkc) 100 Units/Ml SUB-Q Not Given [facility] Protocol Insulin Glargine 80 units 04/12/21 09:35 04/15/21 09:17 Insulin Glargine (*Bkc) 100 Units/Ml SUB-Q 80 units QAM [facility] Administration Lisinopril 10 mg 04/15/21 09:00 04/15/21 09:20 Lisinopril 10 Mg Tablet PO 10 mg DAILY KRISTIN Administration Morphine Sulfate 1 mg 04/13/21 11:30 Morphine Sulfate (*Crx) 2 Mg/Ml Inj IV PUSH Q2H PRN Pain Rated 4-6 Morphine Sulfate 2 mg 04/13/21 11:30 Morphine Sulfate (*Crx) 4 Mg/Ml Inj IV PUSH Q2H PRN Pain Rated 7-10 Naloxone HCl 0.1 mg 04/13/21 11:30 Naloxone Hcl 0.4 Mg/Ml Vial IV PUSH Q2M PRN Opiate Reversal Ondansetron HCl 4 mg 04/13/21 11:30 Ondansetron Inj 4 Mg/2 Ml Vial IV PUSH Q4H PRN Nausea And Vomiting Rosuvastatin Calcium 20 mg 04/13/21 0
[2021-04-15 17:07] LABS: Glucose Point of Care 193 mg/dl (65-105)
[2021-04-15] MEDS: ACETAMINOPHEN 500 MG TABLET PO (18:10)
[2021-04-15] MEDS: SACCHAROMYCES BOULARDII 250 MG CAPSULE PO (18:32)
[2021-04-15 21:35] LABS: Glucose Point of Care 214 mg/dl (65-105)
[2021-04-15] MEDS: INSULIN ASPART (*BKC) 100 UNITS/ML SUB-Q (21:58)
[2021-04-15 22:00] VITALS: BP 116/57; PULSE 58; RESP 20; TEMP 36.2; O2SAT 97
[2021-04-16 06:00] VITALS: BP 126/67; PULSE 68; RESP 20; TEMP 36.7; O2SAT 98
[2021-04-16] MEDS: HYDROcodone/acetaminophen (*CRX) 10-325 MG TABLET 1 TAB PO ×2 (06:25→17:54)
[2021-04-16 06:41] LABS: Hematocrit 35.8 % (42.0-52.0); Hemoglobin 12.1 g/dL (14.0-18.0); Mean Corpuscular HGB Conc 33.8 g/dl (32-36); Mean Corpuscular Hemoglobin 32.3 pg (26-34); Mean Corpuscular Volume 95.5 fl (80-100); Mean Platelet Volume 10.3 fl (7.4-10.4); Platelet Count Result 278 k/mm3 (150-375); Red Blood Count 3.75 M/mm3 (4.6-6.20); Red Cell Distribution Width 12.3 % (11.5-14.5); White Blood Count 12.1 K/mm3 (4.5-10.0)
[2021-04-16 07:01] LABS: Alanine Aminotransferase 24 U/L (4-50); Albumin Level 2.5 g/dL (3.5-5.1); Alkaline Phosphatase 103 U/L (38-126); Anion Gap 5 mmol/L (8-16); Aspartate Amino Transferase 36 U/L (17-59); Bilirubin,Total 0.3 mg/dL (0.2-1.3); Blood Urea Nitrogen 27 mg/dL (9-20); Calcium 8.1 mg/dL (8.4-10.2); Carbon Dioxide 31 mmol/L (22-30); Chloride 101 mmol/L (98-107); Estimated CRCL calculation 74 ml/min; Estimated Glomerular Filt Rate > 60; Glucose 89 mg/dL (65-110); Magnesium 1.9 mg/dL (1.6-2.3); Potassium 3.5 mmol/L (3.4-5.0); Sodium 137 mmol/L (137-145)
[2021-04-16] MEDS: INSULIN ASPART (*BKC) 100 UNITS/ML 6 UNITS SUB-Q ×2 (08:02→12:04)
[2021-04-16] MEDS: INSULIN GLARGINE (*BKC) 100 UNITS/ML 80 UNITS SUB-Q (08:03)
[2021-04-16] MEDS: SACCHAROMYCES BOULARDII 250 MG CAPSULE PO ×2 (08:07→17:16)
[2021-04-16] MEDS: lisinopriL 10 MG TABLET PO (08:07)
[2021-04-16] MEDS: FAMOTIDINE 20 MG TABLET PO ×2 (08:07→21:12)
[2021-04-16] MEDS: ENOXAPARIN 40 MG/0.4 ML SYRINGE SUB-Q (08:07)
[2021-04-16] MEDS: ROSUVASTATIN 10 MG TABLET 20 MG PO (08:08)
[2021-04-16 08:09] LABS: Glucose Point of Care 139 mg/dl (65-105)
[2021-04-16 08:16] VITALS: O2SAT 96
[2021-04-16 09:25] VITALS: BP 116/58; PULSE 66; RESP 16; TEMP 36; O2SAT 99
--- NOTE | 2021-04-16 11:25 | P.PNIM_ITS ---
Progress Note: A&P Assessment and Plan (1) DKA (diabetic ketoacidosis): Qualifiers: Diabetes mellitus complication detail: without coma Diabetes mellitus type: other specified (including CELESTE) Qualified Code(s): E13.10 - Other specified diabetes mellitus with ketoacidosis without coma Code(s): E11.10 - Type 2 diabetes mellitus with ketoacidosis without coma Status: Acute Assessment and Plan: Found to be in DKA at presentation and was admitted to the intensive care unit. Fasting glucose 89 this morning. Subsequent glucose 140-170 today * Anion gap closed and insulin drip discontinued. He is now stable on the medical floor. * Continue with Lantus, decrease to 75 units q.AM * Patient takes Humalog 18 units b.i.d. at home (typically only eats breakfast and dinner). Will transition to 6 units t.i.d. with meals during inpatient hospitalization * A1c is 10.0 * Continue diabetic diet * Consult to CDE. Out of office until 04/21/21. Will request evaluation if patient is still hospitalized at that time, if not will refer for outpatient evaluation (2) Cellulitis and abscess of other specified site: Code(s): L03.818 - Cellulitis of other sites; L02.818 - Cutaneous abscess of other sites Status: Acute Assessment and Plan: Abscess noted to the left lateral upper back near the scapula. * Seen in consultation by General surgery. Input is appreciated * S/p I&D in the OR on 04/13/[address] Kelly * Continue with Zosyn * Intraoperative wound culture with growth of skin kishan. No anaerobes isolated and incubation being continued. (3) Positive blood culture: Code(s): R78.81 - Bacteremia Status: Acute Assessment and Plan: 1 blood culture bottle with growth of Gram-positive cocci, 1 bottle with growth of Gram-positive bacilli * Vancomycin added on 04/14. Continue IV vancomycin and Zosyn * Discussed blood culture results with [facility] today. Reports still waiting on identification and will be in contact with any updates * Consider infectious disease consultation based on results (4) Chronic renal disease: Code(s): N18.9 - Chronic kidney disease, unspecified Status: Chronic Assessment and Plan: Creatinine is stable with GFR >60 * Monitor BMP (5) Hypertension: Code(s): I10 - Essential (primary) hypertension Status: Chronic Assessment and Plan: Blood pressure has been well controlled. Last BP 116/58 * Continue lisinopril * Monitor blood pressure trends closely (6) COVID-19 ruled out by laboratory testing: Code(s): Z20.822 - Contact with and (suspected) exposure to COVID-19 Status: Acute Assessment and Plan: Negative test on 04/11/2021 * Isolation precautions discontinued (7) Hyponatremia: Code(s): E87.1 - Hypo-osmolality and hyponatremia Status: Acute Assessment and Plan: Persistently low this hospitalization ranging from 126-131. Improved with fluid restriction and is normal at 137 today. * Urine sodium and creatinine reviewed. FENa is 0.1% * Holding SSRI * Continue fluid restriction. Increase to 2100 cc/day * Monitor sodium levels. Repeat BMP tomorrow Subjective Date/time seen: 04/16/21 11:25 Interval history: Date of service: 04/14/2021 Suhas Childress is a 66-year-old male with a history of diabetes mellitus, COPD, CKD, hypertension, hyperlipidemia who is seen in follow-up for DKA and abscess of left upper back. He is doing well today.
--- NOTE | 2021-04-16 11:25 | PM.IMPN ---
Progress Note: A&P Assessment and Plan (1) DKA (diabetic ketoacidosis): Qualifiers: Diabetes mellitus complication detail: without coma Diabetes mellitus type: other specified (including CELESTE) Qualified Code(s): E13.10 - Other specified diabetes mellitus with ketoacidosis without coma Code(s): E11.10 - Type 2 diabetes mellitus with ketoacidosis without coma Status: Acute Assessment and Plan: Found to be in DKA at presentation and was admitted to the intensive care unit. Fasting glucose 89 this morning. Subsequent glucose 140-170 today Anion gap closed and insulin drip discontinued. He is now stable on the medical floor. Continue with Lantus, decrease to 75 units q.AM Patient takes Humalog 18 units b.i.d. at home (typically only eats breakfast and dinner). Will transition to 6 units t.i.d. with meals during inpatient hospitalization A1c is 10.0 Continue diabetic diet Consult to CDE. Out of office until 04/21/21. Will request evaluation if patient is still hospitalized at that time, if not will refer for outpatient evaluation (2) Cellulitis and abscess of other specified site: Code(s): L03.818 - Cellulitis of other sites; L02.818 - Cutaneous abscess of other sites Status: Acute Assessment and Plan: Abscess noted to the left lateral upper back near the scapula. Seen in consultation by General surgery. Input is appreciated S/p I&D in the OR on 04/13/[address] Kelly Continue with Zosyn Intraoperative wound culture with growth of skin kishan. No anaerobes isolated and incubation being continued. (3) Positive blood culture: Code(s): R78.81 - Bacteremia Status: Acute Assessment and Plan: 1 blood culture bottle with growth of Gram-positive cocci, 1 bottle with growth of Gram-positive bacilli Vancomycin added on 04/14. Continue IV vancomycin and Zosyn Discussed blood culture results with [facility] today. Reports still waiting on identification and will be in contact with any updates Consider infectious disease consultation based on results (4) Chronic renal disease: Code(s): N18.9 - Chronic kidney disease, unspecified Status: Chronic Assessment and Plan: Creatinine is stable with GFR >60 Monitor BMP (5) Hypertension: Code(s): I10 - Essential (primary) hypertension Status: Chronic Assessment and Plan: Blood pressure has been well controlled. Last BP 116/58 Continue lisinopril Monitor blood pressure trends closely (6) COVID-19 ruled out by laboratory testing: Code(s): Z20.822 - Contact with and (suspected) exposure to COVID-19 Status: Acute Assessment and Plan: Negative test on 04/11/2021 Isolation precautions discontinued (7) Hyponatremia: Code(s): E87.1 - Hypo-osmolality and hyponatremia Status: Acute Assessment and Plan: Persistently low this hospitalization ranging from 126-131. Improved with fluid restriction and is normal at 137 today. Urine sodium and creatinine reviewed. FENa is 0.1% Holding SSRI Continue fluid restriction. Increase to 2100 cc/day Monitor sodium levels. Repeat BMP tomorrow Subjective Date/time seen: 04/16/21 11:25 Interval history: Date of service: 04/14/2021 Suhas Childress is a 66-year-old male with a history of diabetes mellitus, COPD, CKD, hypertension, hyperlipidemia who is seen in follow-up for DKA and abscess of left upper back. He is doing well today. He has no back pain at this time but does endorse itching at the site of abscess removal. Denies fever or chills. No nausea or vomiting. He is tolerating his diet. He has been having loose stools. No urinary symptoms. No shortness breath, cough, chest pain, dizziness, or lightheadedness. He is able to ambulate independently. Review of Systems Review of Systems: All systems reviewed & are unremarkable except as noted in HPI and below Ex
[2021-04-16 11:47] LABS: Glucose Point of Care 173 mg/dl (65-105)
--- NOTE | 2021-04-16 12:41 | PM.PNGS ---
Progress Note: A&P Assessment and Plan (1) Abscess of upper back excluding scapular region: Code(s): L02.212 - Cutaneous abscess of back [any part, except buttock] Status: Acute Assessment and Plan: Abscess is well drained. Continue local wound care with dry gauze and ABD pad to be changed twice daily. Hopefully drainage will continue to decrease. Patient plans on staying with his sister after discharge to help with dressing changes initially. Preliminary blood cultures showing growth of gram + bacilli and gram + cocci, awaiting final results. A 7-day course of IV antibiotics would be adequate from our standpoint. Additional Plan I have discussed the plan of care with Dr. Kelly. Subjective Subjective Date/Time Seen: 04/16/21 12:41 Post Op day: 3 (I&D complex back abscess) Patient reports: no new complaints, feels better, pain is less, tolerating a regular diet and afebrile Interval history: Patient feeling well today. Reports his pain has improved. No specific complaints. Eating lunch at the time of my exam sitting in bed. Review of Systems Review of Systems: All systems reviewed & are unremarkable except as noted in HPI and below Exam Const: General: no acute distress, alert and awake Orientation/consciousness: patient oriented x3 Back/Spine/Pelvis: Back: No erythema, No warmth and back tenderness (continues to improve) Other: Left upper back abscess dressing removed with dressing saturated with moderate amount of drainage. This appears adequately drained and no purulent drainage noted. Clean dressing applied. Psych: Mental Status: mental status grossly normal Insight: Good insight present (Psych) Objective Data Vital Signs Vital Signs: Vital Signs - 24 hr 04/15/21 14:00 04/15/21 22:00 04/16/21 06:00 Temperature 97.1 F L 97.2 F L 98.0 F Pulse Rate 71 58 L 68 Respiratory Rate 14 20 20 Blood Pressure 116/58 L 116/57 L 126/67 Pulse Oximetry 100 97 98 04/16/21 08:16 04/16/21 09:25 Temperature 96.8 F L Pulse Rate 66 Respiratory Rate 16 Blood Pressure 116/58 L Pulse Oximetry 96 99 Intake/Output Intake/Output: Intake & Output 04/13/21 04/14/21 04/15/21 04/16/21 23:59 23:59 23:59 23:59 Intake Total 2240 3990 2212 1226 Output Total 500 600 Balance 1740 3990 1612 1226 Meds/Results Medications: Active Medications Generic Name Dose Route Start Last Admin Trade Name Freq PRN Reason Stop Dose Admin Acetaminophen 500 mg 04/13/21 11:30 04/15/21 18:10 Acetaminophen 500 Mg Tablet PO 500 mg Q6H PRN Administration Mild Pain (1-3) or Fever Hydrocodone Bitart/Acetaminophen 1 tab 04/13/21 11:30 04/13/21 17:33 Hydrocodone/Acetaminophen (*Crx) 5-325 Mg Tablet PO 1 tab Q4H PRN Administration Pain Rated 4-6 Hydrocodone Bitart/Acetaminophen 1 tab 04/13/21 11:30 04/16/21 06:25 Hydrocodone/Acetaminophen (*Crx) 10-325 Mg Tablet PO 1 tab Q4H PRN Administration Pain Rated 7-10 Enoxaparin Sodium 40 mg 04/12/21 09:00 04/16/21 08:07 Enoxaparin 40 Mg/0.4 Ml Syringe SUB-Q 40 mg DAILY KRISTIN Administration Escitalopram Oxalate 10 mg 04/13/21 09:00 04/14/21 08:13 Escitalopram Oxalate 10 Mg Tablet PO 10 mg DAILY KRISTIN Administration Famotidine 20 mg 04/13/21 21:00 04/16/21 08:07 Famotidine 20 Mg Tablet PO 20 mg Q12HR KRISTIN Administration Glucagon 1 mg 04/11/21 21:43 Glucagon For Inj 1 Mg Vial IM PRN PRN Hypoglycemia Protocol Hydralazine HCl 10 mg 04/11/21 22:09 Hydralazine Hcl 20 Mg/Ml Vial IV PUSH Q8H PRN Blood Pressure - High Piperacillin/Tazobactam/Dextrose 3.375 gm in 50 mls @ 100 mls/hr 04/13/21 12:00 04/16/21 12:05 Zosyn 3.375 Gm/D5w 50ml Pm IVPB 100 mls/hr Q6HR KRISTIN Administration Vancomycin HCl 1,500 mg in 500 mls @ 333.333 mls/hr 04/14/21 20:00 04/16/21 09:35 Vancomycin 1,500 Mg/D5w 500 Ml IVPB Infused Q18H KRISTIN Infusion Insulin Aspart 6 units 04/14/21 17
[2021-04-16 14:44] VITALS: BP 132/59; PULSE 72; RESP 16; TEMP 36.1; O2SAT 99
--- NOTE | 2021-04-16 15:31 | PC.NURSE ---
On 04/16/21, the student, Sofia Valentin, provided care and completed [facility] documentation on this patient. I have reviewed the student's documentation and agree with the findings.
[2021-04-16 17:23] LABS: Glucose Point of Care 78 mg/dl (65-105)
[2021-04-16 21:53] LABS: Glucose Point of Care 157 mg/dl (65-105)
[2021-04-16 22:00] VITALS: BP 138/61; PULSE 60; RESP 18; TEMP 36.6; O2SAT 99
[2021-04-17 02:04] LABS: Vancomycin Trough 8.7 ug/mL (10.0-20.0)
[2021-04-17 06:00] VITALS: BP 138/60; PULSE 52; RESP 16; TEMP 36.1; O2SAT 100
[2021-04-17 06:44] LABS: Hematocrit 34.4 % (42.0-52.0); Hemoglobin 11.7 g/dL (14.0-18.0); Mean Corpuscular Hemoglobin 31.8 pg (26-34); Mean Corpuscular Volume 93.5 fl (80-100); Mean Platelet Volume 9.9 fl (7.4-10.4); Platelet Count Result 303 k/mm3 (150-375); Red Blood Count 3.68 M/mm3 (4.6-6.20); Red Cell Distribution Width 12.3 % (11.5-14.5)
[2021-04-17 07:05] LABS: Alanine Aminotransferase 23 U/L (4-50); Albumin Level 2.4 g/dL (3.5-5.1); Alkaline Phosphatase 98 U/L (38-126); Anion Gap 4 mmol/L (8-16); Aspartate Amino Transferase 32 U/L (17-59); Bilirubin,Total 0.2 mg/dL (0.2-1.3); Blood Urea Nitrogen 18 mg/dL (9-20); Calcium 8.1 mg/dL (8.4-10.2); Carbon Dioxide 29 mmol/L (22-30); Chloride 102 mmol/L (98-107); Estimated CRCL calculation 74 ml/min; Estimated Glomerular Filt Rate > 60; Glucose 176 mg/dL (65-110); Magnesium 1.9 mg/dL (1.6-2.3); Potassium 3.7 mmol/L (3.4-5.0); Sodium 135 mmol/L (137-145)
[2021-04-17 08:00] VITALS: PULSE 52; RESP 16; O2SAT 100
[2021-04-17] MEDS: ENOXAPARIN 40 MG/0.4 ML SYRINGE SUB-Q (08:23)
[2021-04-17] MEDS: ROSUVASTATIN 10 MG TABLET 20 MG PO (08:23)
[2021-04-17] MEDS: SACCHAROMYCES BOULARDII 250 MG CAPSULE PO ×2 (08:23→18:07)
[2021-04-17] MEDS: FAMOTIDINE 20 MG TABLET PO ×2 (08:24→21:44)
[2021-04-17] MEDS: lisinopriL 10 MG TABLET PO (08:24)
[2021-04-17 08:51] LABS: Glucose Point of Care 123 mg/dl (65-105)
[2021-04-17] MEDS: INSULIN GLARGINE (*BKC) 100 UNITS/ML 75 UNITS SUB-Q (09:11)
--- NOTE | 2021-04-17 10:28 | PCAUD ---
Elizabeth informed IV access lost this shift, x3 attempt unable to restart IV, Ed to admited with US placement this shift, may need to call [facility] for midline or Picc line placement if unable to restart.
--- NOTE | 2021-04-17 11:09 | P.PNIM_ITS ---
Progress Note: A&P Assessment and Plan (1) DKA (diabetic ketoacidosis): Qualifiers: Diabetes mellitus complication detail: without coma Diabetes mellitus type: other specified (including CELESTE) Qualified Code(s): E13.10 - Other specified diabetes mellitus with ketoacidosis without coma Code(s): E11.10 - Type 2 diabetes mellitus with ketoacidosis without coma Status: Acute Assessment and Plan: Found to be in DKA at presentation and was admitted to the intensive care unit. A1c is 10.0. Glucose ranging 120-170 today. * Anion gap closed and insulin drip discontinued. He is now stable on the medical floor. * Continue with Lantus 75 units q.AM * Patient takes Humalog 18 units b.i.d. at home (typically only eats breakfast and lunch, reports snacking at dinnertime but does not take insulin). * Continue with 6 units t.i.d. with meals during inpatient hospitalization * Discussed with him maintaining a regular meal schedule and sticking to breakfast, lunch, and dinner. Will plan to transition him to 15 units humalog t.i.d. on discharge * Consult to CDE. Out of office until 04/21/21. Will request evaluation if patient is still hospitalized at that time, if not will refer for outpatient evaluation * Continue diabetic diet (2) Cellulitis and abscess of other specified site: Code(s): L03.818 - Cellulitis of other sites; L02.818 - Cutaneous abscess of other sites Status: Acute Assessment and Plan: Abscess of left lateral upper back near the scapula. * Seen in consultation by General surgery. Input is appreciated * S/p I&D in the OR on 04/13/[address] Kelly * Continue with Vancomycin and Zosyn * Intraoperative wound culture with light growth of actinomyces species from anaerobic culture (3) Positive blood culture: Code(s): R78.81 - Bacteremia Status: Acute Assessment and Plan: 1 blood culture bottle with growth of Gram-positive cocci, 1 bottle with growth of Gram-positive bacilli * Vancomycin added on 04/14. Continue IV vancomycin and Zosyn * Discussed blood culture results with [facility] on 04/16. Reported difficult to identify organism and incubation period was extended * Preliminary results from 1 blood culture bottle with growth of Actinomyces, co nsistent with wound culture isolate * Second bottle with Gram-positive bacilli, awaiting further identification * Consultation to Infectious Disease. Input is appreciated (4) Chronic renal disease: Code(s): N18.9 - Chronic kidney disease, unspecified Status: Chronic Assessment and Plan: Creatinine is stable with GFR >60 * Monitor BMP (5) Hypertension: Code(s): I10 - Essential (primary) hypertension Status: Chronic Assessment and Plan: Blood pressure has been well controlled. Last BP 138/60 * Continue lisinopril * Monitor blood pressure trends closely (6) COVID-19 ruled out by laboratory testing: Code(s): Z20.822 - Contact with and (suspected) exposure to COVID-19 Status: Acute Assessment and Plan: Negative test on 04/11/2021 * Isolation precautions discontinued (7) Hyponatremia: Code(s): E87.1 - Hypo-osmolality and hyponatremia Status: Acute Assessment and Plan: Persistently low this hospitalization ranging from 126-131. Improved with fluid restriction. Sodium 135 today * Urine sodium and creatinine reviewed. FENa is 0.1% * Holding SSRI * Continue with fluid restriction, increased to 2100 cc/day. May need to decrea
--- NOTE | 2021-04-17 11:09 | PM.IMPN ---
Progress Note: A&P Assessment and Plan (1) DKA (diabetic ketoacidosis): Qualifiers: Diabetes mellitus complication detail: without coma Diabetes mellitus type: other specified (including CELESTE) Qualified Code(s): E13.10 - Other specified diabetes mellitus with ketoacidosis without coma Code(s): E11.10 - Type 2 diabetes mellitus with ketoacidosis without coma Status: Acute Assessment and Plan: Found to be in DKA at presentation and was admitted to the intensive care unit. A1c is 10.0. Glucose ranging 120-170 today. Anion gap closed and insulin drip discontinued. He is now stable on the medical floor. Continue with Lantus 75 units q.AM Patient takes Humalog 18 units b.i.d. at home (typically only eats breakfast and lunch, reports snacking at dinnertime but does not take insulin). Continue with 6 units t.i.d. with meals during inpatient hospitalization Discussed with him maintaining a regular meal schedule and sticking to breakfast, lunch, and dinner. Will plan to transition him to 15 units humalog t.i.d. on discharge Consult to CDE. Out of office until 04/21/21. Will request evaluation if patient is still hospitalized at that time, if not will refer for outpatient evaluation Continue diabetic diet (2) Cellulitis and abscess of other specified site: Code(s): L03.818 - Cellulitis of other sites; L02.818 - Cutaneous abscess of other sites Status: Acute Assessment and Plan: Abscess of left lateral upper back near the scapula. Seen in consultation by General surgery. Input is appreciated S/p I&D in the OR on 04/13/[address] Kelly Continue with Vancomycin and Zosyn Intraoperative wound culture with light growth of actinomyces species from anaerobic culture (3) Positive blood culture: Code(s): R78.81 - Bacteremia Status: Acute Assessment and Plan: 1 blood culture bottle with growth of Gram-positive cocci, 1 bottle with growth of Gram-positive bacilli Vancomycin added on 04/14. Continue IV vancomycin and Zosyn Discussed blood culture results with [facility] on 04/16. Reported difficult to identify organism and incubation period was extended Preliminary results from 1 blood culture bottle with growth of Actinomyces, consistent with wound culture isolate Second bottle with Gram-positive bacilli, awaiting further identification Consultation to Infectious Disease. Input is appreciated (4) Chronic renal disease: Code(s): N18.9 - Chronic kidney disease, unspecified Status: Chronic Assessment and Plan: Creatinine is stable with GFR >60 Monitor BMP (5) Hypertension: Code(s): I10 - Essential (primary) hypertension Status: Chronic Assessment and Plan: Blood pressure has been well controlled. Last BP 138/60 Continue lisinopril Monitor blood pressure trends closely (6) COVID-19 ruled out by laboratory testing: Code(s): Z20.822 - Contact with and (suspected) exposure to COVID-19 Status: Acute Assessment and Plan: Negative test on 04/11/2021 Isolation precautions discontinued (7) Hyponatremia: Code(s): E87.1 - Hypo-osmolality and hyponatremia Status: Acute Assessment and Plan: Persistently low this hospitalization ranging from 126-131. Improved with fluid restriction. Sodium 135 today Urine sodium and creatinine reviewed. FENa is 0.1% Holding SSRI Continue with fluid restriction, increased to 2100 cc/day. May need to decrease fluid allowance if sodium trends down further Monitor sodium levels. Repeat BMP tomorrow Subjective Date/time seen: 04/17/21 11:09 Interval history: Date of service: 04/17/2021 Suhas Childress is a 66-year-old male with a history of diabetes mellitus, COPD, CKD, hypertension, hyperlipidemia who is seen in follow-up for DKA and abscess of left upper back. He is feeling well today. His back is feeling better. He rates his pain
[2021-04-17 11:32] LABS: Glucose Point of Care 224 mg/dl (65-105)
[2021-04-17] MEDS: INSULIN ASPART (*BKC) 100 UNITS/ML 6 UNITS SUB-Q ×2 (12:13→17:08)
[2021-04-17] MEDS: INSULIN ASPART (*BKC) 100 UNITS/ML SUB-Q ×2 (12:14→17:08)
[2021-04-17 14:00] VITALS: BP 113/49; PULSE 60; RESP 20; TEMP 36.8; O2SAT 98
[2021-04-17 16:14] LABS: Glucose Point of Care 216 mg/dl (65-105)
--- NOTE | 2021-04-17 18:55 | PCAUD ---
Elizabeth informed bs < 200 this am, order received to hold schedule 6 units of novolog and sliding scale novolog insulins and continue with only giving 75 units Lantus this morning.
[2021-04-17 21:00] VITALS: BP 119/49; PULSE 52; RESP 18; TEMP 36.1; O2SAT 96
[2021-04-17 22:17] LABS: Glucose Point of Care 133 mg/dl (65-105)
[2021-04-18 06:00] VITALS: BP 126/48; PULSE 55; RESP 16; TEMP 36.1; O2SAT 100
[2021-04-18 06:44] LABS: Basophils Absolute Auto 0.1 K/mm3 (0.0-0.1); Basophils Percent Auto 0.5 % (0.2-1.2); Eosinophils Absolute Auto 0.2 K/mm3 (0-0.3); Hematocrit 36.1 % (42.0-52.0); Hemoglobin 12.1 g/dL (14.0-18.0); Immature Granulocyte Absolute 0.31 K/mm3 (0.00-0.031); Immature Granulocyte Percent A 2.7 % (0-0.5); Lymphocytes Absolute Auto 2.12 K/mm3 (0.9-3.2); Lymphocytes Percent Auto 18.3 % (18.3-44.2); Mean Corpuscular HGB Conc 33.5 g/dl (32-36); Mean Corpuscular Hemoglobin 31.5 pg (26-34); Monocytes Absolute Auto 0.9 K/mm3 (0.1-0.6); Monocytes Percent Auto 7.9 % (2.6-8.5); Neutrophils Percent Auto 68.6 % (45.5-73.1); Platelet Count Result 321 k/mm3 (150-375); Red Blood Count 3.84 M/mm3 (4.6-6.20); Red Cell Distribution Width 12.3 % (11.5-14.5); White Blood Count 11.6 K/mm3 (4.5-10.0)
[2021-04-18 08:13] LABS: Glucose Point of Care 159 mg/dl (65-105)
[2021-04-18] MEDS: INSULIN ASPART (*BKC) 100 UNITS/ML 6 UNITS SUB-Q ×3 (08:53→17:16)
[2021-04-18] MEDS: ROSUVASTATIN 10 MG TABLET 20 MG PO (08:53)
[2021-04-18] MEDS: SACCHAROMYCES BOULARDII 250 MG CAPSULE PO ×2 (08:53→17:20)
[2021-04-18] MEDS: FAMOTIDINE 20 MG TABLET PO ×2 (08:53→22:25)
[2021-04-18] MEDS: ENOXAPARIN 40 MG/0.4 ML SYRINGE SUB-Q (08:53)
[2021-04-18] MEDS: INSULIN GLARGINE (*BKC) 100 UNITS/ML 75 UNITS SUB-Q (08:54)
[2021-04-18] MEDS: lisinopriL 10 MG TABLET PO (09:01)
[2021-04-18 11:01] LABS: Anion Gap 5 mmol/L (8-16); Blood Urea Nitrogen 16 mg/dL (9-20); Calcium 8.3 mg/dL (8.4-10.2); Carbon Dioxide 27 mmol/L (22-30); Chloride 104 mmol/L (98-107); Estimated CRCL calculation 67 ml/min; Estimated Glomerular Filt Rate > 60; Glucose 142 mg/dL (65-110); Sodium 136 mmol/L (137-145)
--- NOTE | 2021-04-18 11:43 | PM.PNGS ---
Progress Note: A&P Assessment and Plan (1) Abscess of upper back excluding scapular region: Code(s): L02.212 - Cutaneous abscess of back [any part, except buttock] Status: Acute Assessment and Plan: continues to heal well. Patient can go home when okay with hospitalist and others. At home, he should shower daily and wash the area of the abscess with soap. After shower, tamped the area dry and place a gauze dressing. Replaced the dressing daily and p.r.n.. Use minimal tape. I will see him after discharge in 2 weeks. Subjective Subjective Date/Time Seen: 04/18/21 11:43 Patient reports: no new complaints and pain is less Exam Back/Spine/Pelvis: Back: erythema, No warmth and other ( Serous drainage from abscess cavity but otherwise looks good and healing ) Objective Data Vital Signs Vital Signs: Vital Signs - 24 hr 04/17/21 14:00 04/17/21 21:00 04/18/21 06:00 Temperature 36.8 C 36.1 C L 36.1 C L Pulse Rate 60 52 L 55 L Respiratory Rate 20 18 16 Blood Pressure 113/49 L 119/49 L 126/48 L Pulse Oximetry 98 96 100 Intake/Output Intake/Output: Intake & Output 04/15/21 04/16/21 04/17/21 04/18/21 23:59 23:59 23:59 23:59 Intake Total 2212 2446 3310 690 Output Total 600 400 Balance 1612 2446 2910 690 Meds/Results Medications: Active Medications Generic Name Dose Route Start Last Admin Trade Name Freq PRN Reason Stop Dose Admin Acetaminophen 500 mg 04/13/21 11:30 04/15/21 18:10 Acetaminophen 500 Mg Tablet PO 500 mg Q6H PRN Administration Mild Pain (1-3) or Fever Hydrocodone Bitart/Acetaminophen 1 tab 04/13/21 11:30 04/13/21 17:33 Hydrocodone/Acetaminophen (*Crx) 5-325 Mg Tablet PO 1 tab Q4H PRN Administration Pain Rated 4-6 Hydrocodone Bitart/Acetaminophen 1 tab 04/13/21 11:30 04/16/21 17:54 Hydrocodone/Acetaminophen (*Crx) 10-325 Mg Tablet PO 1 tab Q4H PRN Administration Pain Rated 7-10 Enoxaparin Sodium 40 mg 04/12/21 09:00 04/18/21 08:53 Enoxaparin 40 Mg/0.4 Ml Syringe SUB-Q 40 mg DAILY KRISTIN Administration Escitalopram Oxalate 10 mg 04/13/21 09:00 04/14/21 08:13 Escitalopram Oxalate 10 Mg Tablet PO 10 mg DAILY KRISTIN Administration Famotidine 20 mg 04/13/21 21:00 04/18/21 08:53 Famotidine 20 Mg Tablet PO 20 mg Q12HR KRISTIN Administration Glucagon 1 mg 04/11/21 21:43 Glucagon For Inj 1 Mg Vial IM PRN PRN Hypoglycemia Protocol Hydralazine HCl 10 mg 04/11/21 22:09 Hydralazine Hcl 20 Mg/Ml Vial IV PUSH Q8H PRN Blood Pressure - High Piperacillin/Tazobactam/Dextrose 3.375 gm in 50 mls @ 100 mls/hr 04/13/21 12:00 04/18/21 05:29 Zosyn 3.375 Gm/D5w 50ml Pm IVPB 100 mls/hr Q6HR KRISTIN Administration Vancomycin HCl 1,500 mg in 500 mls @ 333.333 mls/hr 04/17/21 15:00 04/18/21 02:57 Vancomycin 1,500 Mg/D5w 500 Ml IVPB 333.33 mls/hr Q12H KRISTIN Administration Insulin Aspart 6 units 04/14/21 17:00 04/18/21 08:53 Insulin Aspart (*Bkc) 100 Units/Ml SUB-Q 6 units [facility] Administration Insulin Aspart 4 - 8 units 04/15/21 08:00 04/18/21 08:55 Insulin Aspart (*Bkc) 100 Units/Ml SUB-Q Not Given [facility] Protocol Insulin Glargine 75 units 04/17/21 09:00 04/18/21 08:54 Insulin Glargine (*Bkc) 100 Units/Ml SUB-Q 75 units QAM [facility] Administration Lisinopril 10 mg 04/15/21 09:00 04/18/21 09:01 Lisinopril 10 Mg Tablet PO 10 mg DAILY KRISTIN Administration Morphine Sulfate 1 mg 04/13/21 11:30 Morphine Sulfate (*Crx) 2 Mg/Ml Inj IV PUSH Q2H PRN Pain Rated 4-6 Morphine Sulfate 2 mg 04/13/21 11:30 Morphine Sulfate (*Crx) 4 Mg/Ml Inj IV PUSH Q2H PRN Pain Rated 7-10 Naloxone HCl 0.1 mg 04/13/21 11:30 Naloxone Hcl 0.4 Mg/Ml Vial IV PUSH Q2M PRN Opiate Reversal Ondansetron HCl 4 mg 04/13/21 11:30 Ondansetron Inj 4 Mg/2 Ml Vial IV PUSH Q4H PRN Nausea And Vomiting Rosuv
[2021-04-18 12:18] LABS: Glucose Point of Care 107 mg/dl (65-105)
[2021-04-18 14:43] VITALS: BP 160/82; PULSE 64; RESP 14; TEMP 36.7; O2SAT 99
--- NOTE | 2021-04-18 14:50 | P.PNIM_ITS ---
Progress Note: A&P Assessment and Plan (1) DKA (diabetic ketoacidosis): Qualifiers: Diabetes mellitus complication detail: without coma Diabetes mellitus type: other specified (including CELESTE) Qualified Code(s): E13.10 - Other specified diabetes mellitus with ketoacidosis without coma Code(s): E11.10 - Type 2 diabetes mellitus with ketoacidosis without coma Status: Acute Assessment and Plan: Found to be in DKA at presentation and was admitted to the intensive care unit. A1c is 10.0. Glucose 142 today. * Anion gap closed and insulin drip discontinued. He is now stable on the medical floor. * Continue with Lantus 75 units q.AM * Patient takes Humalog 18 units b.i.d. at home (typically only eats breakfast and lunch, reports snacking at dinnertime but does not take insulin). * Continue with 6 units t.i.d. with meals during inpatient hospitalization * Discussed with him maintaining a regular meal schedule and sticking to breakfast, lunch, and dinner. Will plan to transition him to 15 units humalog t.i.d. on discharge * Consult to CDE. Out of office until 04/21/21. Will request evaluation if patient is still hospitalized at that time, if not will refer for outpatient evaluation * Continue diabetic diet (2) Cellulitis and abscess of other specified site: Code(s): L03.818 - Cellulitis of other sites; L02.818 - Cutaneous abscess of other sites Status: Acute Assessment and Plan: Abscess of left lateral upper back near the scapula. * Seen in consultation by General surgery. Input is appreciated * Surgery gave ok for DC * S/p I&D in the OR on 04/13/[address] Kelly * Continue with Vancomycin and Zosyn * Intraoperative wound culture with light growth of actinomyces species from anaerobic culture (3) Positive blood culture: Code(s): R78.81 - Bacteremia Status: Acute Assessment and Plan: 1 blood culture bottle with growth of Gram-positive cocci, 1 bottle with growth of Gram-positive bacilli * Vancomycin added on 04/14. Continue IV vancomycin and Zosyn * Discussed blood culture results with [facility] on 04/16. Reported difficult to identify organism and incubation period was extended * Preliminary results from 1 blood culture bottle with growth of Actinomyces, consistent with wound culture isolate * Second bottle with peptostreptococcus * Sensitivities are still pending * Consultation to Infectious Disease. Input is appreciated (4) Chronic renal disease: Code(s): N18.9 - Chronic kidney disease, unspecified Status: Chronic Assessment and Plan: Creatinine is stable with GFR >60 BUN/ CR stable at 16/1.10 * Monitor BMP (5) Hypertension: Code(s): I10 - Essential (primary) hypertension Status: Chronic Assessment and Plan: Blood pressure has been well controlled. Last BP 160/82 * Continue lisinopril * Monitor blood pressure trends closely (6) COVID-19 ruled out by laboratory testing: Code(s): Z20.822 - Contact with and (suspected) exposure to COVID-19 Status: Acute Assessment and Plan: Negative test on 04/11/2021 * Isolation precautions discontinued (7) Hyponatremia: Code(s): E87.1 - Hypo-osmolality and hyponatremia Status: Acute Assessment and Plan: Persistently low this hospitalization ranging from 126-131. Improved with fluid restriction. Sodium 136 today * Urine sodium and creatinine reviewed. FENa is 0.1% * Holding SSRI * Continue with fluid restriction
--- NOTE | 2021-04-18 14:50 | PM.IMPN ---
Progress Note: A&P Assessment and Plan (1) DKA (diabetic ketoacidosis): Qualifiers: Diabetes mellitus complication detail: without coma Diabetes mellitus type: other specified (including CELESTE) Qualified Code(s): E13.10 - Other specified diabetes mellitus with ketoacidosis without coma Code(s): E11.10 - Type 2 diabetes mellitus with ketoacidosis without coma Status: Acute Assessment and Plan: Found to be in DKA at presentation and was admitted to the intensive care unit. A1c is 10.0. Glucose 142 today. Anion gap closed and insulin drip discontinued. He is now stable on the medical floor. Continue with Lantus 75 units q.AM Patient takes Humalog 18 units b.i.d. at home (typically only eats breakfast and lunch, reports snacking at dinnertime but does not take insulin). Continue with 6 units t.i.d. with meals during inpatient hospitalization Discussed with him maintaining a regular meal schedule and sticking to breakfast, lunch, and dinner. Will plan to transition him to 15 units humalog t.i.d. on discharge Consult to CDE. Out of office until 04/21/21. Will request evaluation if patient is still hospitalized at that time, if not will refer for outpatient evaluation Continue diabetic diet (2) Cellulitis and abscess of other specified site: Code(s): L03.818 - Cellulitis of other sites; L02.818 - Cutaneous abscess of other sites Status: Acute Assessment and Plan: Abscess of left lateral upper back near the scapula. Seen in consultation by General surgery. Input is appreciated Surgery gave ok for DC S/p I&D in the OR on 04/13/[address] Kelly Continue with Vancomycin and Zosyn Intraoperative wound culture with light growth of actinomyces species from anaerobic culture (3) Positive blood culture: Code(s): R78.81 - Bacteremia Status: Acute Assessment and Plan: 1 blood culture bottle with growth of Gram-positive cocci, 1 bottle with growth of Gram-positive bacilli Vancomycin added on 04/14. Continue IV vancomycin and Zosyn Discussed blood culture results with [facility] on 04/16. Reported difficult to identify organism and incubation period was extended Preliminary results from 1 blood culture bottle with growth of Actinomyces, consistent with wound culture isolate Second bottle with peptostreptococcus Sensitivities are still pending Consultation to Infectious Disease. Input is appreciated (4) Chronic renal disease: Code(s): N18.9 - Chronic kidney disease, unspecified Status: Chronic Assessment and Plan: Creatinine is stable with GFR >60 BUN/ CR stable at 16/1.10 Monitor BMP (5) Hypertension: Code(s): I10 - Essential (primary) hypertension Status: Chronic Assessment and Plan: Blood pressure has been well controlled. Last BP 160/82 Continue lisinopril Monitor blood pressure trends closely (6) COVID-19 ruled out by laboratory testing: Code(s): Z20.822 - Contact with and (suspected) exposure to COVID-19 Status: Acute Assessment and Plan: Negative test on 04/11/2021 Isolation precautions discontinued (7) Hyponatremia: Code(s): E87.1 - Hypo-osmolality and hyponatremia Status: Acute Assessment and Plan: Persistently low this hospitalization ranging from 126-131. Improved with fluid restriction. Sodium 136 today Urine sodium and creatinine reviewed. FENa is 0.1% Holding SSRI Continue with fluid restriction, increased to 2100 cc/day. May need to decrease fluid allowance if sodium trends down further Monitor sodium levels. Repeat BMP tomorrow Time Spent With Patient Time with patient: Greater than 35 minutes Subjective Date/time seen: 04/18/21 09:15 am Interval history: Patient is a 66-year-old male was here for DKA an abscess. Patient stated that he feels better today than he has in a while. He was also stated that he was hungry and
[2021-04-18] MEDS: ACETAMINOPHEN 500 MG TABLET PO (15:12)
[2021-04-18 15:13] VITALS: BP 136/53; PULSE 60; RESP 20; TEMP 36.8; O2SAT 98
[2021-04-18 16:53] LABS: Glucose Point of Care 138 mg/dl (65-105)
[2021-04-18 17:10] LABS: Glucose Point of Care 146 mg/dl (65-105)
--- NOTE | 2021-04-18 18:46 | WPDCN ---
Assessment and Plan Additional Plan 1. Mixed gram-positive bacteremia including Actinomyces and Streptococcus. Suspect this may be a true infection. Wound culture from incision and drainage site also grew Actinomyces. I suspect this may be a transient bacteremia. Patient is on Zosyn day 6 and vancomycin day 4. Zosyn should have adequate coverage and I would not recommend any further vancomycin use. Also would strongly recommend not use a combination of Zosyn and vancomycin especially in diabetic patient with increasing risk of acute renal failure. Repeat blood cultures x2 sets. Continue IV antibiotics at least for another 2-4 days. Repeat blood cultures will be requested tonight. 2. Soft tissue abscess of the back close to the left scapular area. Status post incision and drainage with intraoperative culture showing Actinomyces. Zosyn should have adequate coverage. 3. Type 2 diabetes recommend tighter glycemic control. Last hemoglobin A1c was 10. 4. Date of service 04/18/2021 HPI Data of Consult Date/Time: 04/18/21 18:46 Requesting Physician: Elizabeth Becerra PA-C Primary Care Provider: Jc Blancas MD Consult Narrative Narrative: Suhas Childress is a 66 year old male with significant past medical history for type 2 diabetes, erectile dysfunction, glaucoma, COPD and chronic renal disease presented to the emergency room on 04/11/2021 with fever and chills associated with generalized body ache. Patient also complained of a small abscess in the left mid back scapular area. Patient was subsequently evaluated by General surgery and status post incision and drainage. On admission he also had blood cultures collected in which 1 set grew actinomycosis while the 2nd set grew Streptococcus. 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 Patient is currently on Zosyn and vancomycin. I was requested to see him for further evaluation. Patient states that his fever has improved significantly. No nausea or vomiting. Review of Systems Constitutional: Constitutional: Reports fever(s) Comments: Fever and chills prior to admission Eyes: Eyes: Reports no additional eye complaints ENT: Reports system reviewed and no additional complaints, except as documented Cardiovascular: Cardiovascular: Reports no additional cardiovascular complaints Respiratory: Respiratory: Reports no additional respiratory complaints Gastrointestinal: Comments: Nausea and vomiting prior to admission Integumentary/Breasts: Comments: Back abscess Neurologic: Reports system reviewed and no additional complaints, except as documented Psychiatric: Psychiatric: Reports no additional psychiatric complaints Endocrine: Endocrine: Reports no additional endocrine complaints Hematologic/Lymphatic: Hematologic/Lymphatic: Reports no additional hematologic/lymphatic complaints Allergic/Immunologic: Allergic/Immunologic: Reports no additional allergic/immunologic complaints [facility] Past Medical History Medical History (Updated 04/15/21 @ 17:29 by Elizabeth Becerra PA-C) Back pain Chronic renal disease COPD (chronic obstructive pulmonary disease) Depression with anxiety Diabetes mellitus Diabetes mellitus with complication, with long-term current use of insulin DKA (diabetic ketoacidosis) Erectile dysfunction Glaucoma Hypertension Mixed hyperlipidemia Neuropathy Surgical History Surgical History History of orthopedic surgery 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eoplasm Diabetes mellitus Father Diabetes mellitus Family history of type 2 diabetes mellitus Carcinoma of colon Hypertension Mother Heart disease COPD (chronic obstructive pulmonary disease) Lung disease Glaucoma Hypertension Sibling Liver disease Other Family history of cardiovascular disease
[2021-04-18 21:54] VITALS: BP 131/65; PULSE 53; RESP 18; TEMP 37.3; O2SAT 99
[2021-04-18] MEDS: INSULIN ASPART (*BKC) 100 UNITS/ML SUB-Q (22:26)
[2021-04-18 23:21] LABS: Glucose Point of Care 216 mg/dl (65-105)
[2021-04-19 05:24] VITALS: BP 128/75; PULSE 59; RESP 17; TEMP 36.6; O2SAT 96
[2021-04-19 06:42] LABS: Basophils Percent Auto 0.4 % (0.2-1.2); Eosinophils Absolute Auto 0.2 K/mm3 (0-0.3); Eosinophils Percent Auto 1.4 % (0-4.4); Hematocrit 36.8 % (42.0-52.0); Hemoglobin 12.4 g/dL (14.0-18.0); Immature Granulocyte Percent A 1.8 % (0-0.5); Lymphocytes Absolute Auto 1.96 K/mm3 (0.9-3.2); Lymphocytes Percent Auto 17.4 % (18.3-44.2); Mean Corpuscular HGB Conc 33.7 g/dl (32-36); Mean Corpuscular Hemoglobin 31.9 pg (26-34); Mean Corpuscular Volume 94.6 fl (80-100); Mean Platelet Volume 9.8 fl (7.4-10.4); Monocytes Absolute Auto 0.8 K/mm3 (0.1-0.6); Monocytes Percent Auto 7.3 % (2.6-8.5); Neutrophils Absolute Auto 8.1 K/mm3 (1.3-6.7); Neutrophils Percent Auto 71.7 % (45.5-73.1); Platelet Count Result 358 k/mm3 (150-375); Red Blood Count 3.89 M/mm3 (4.6-6.20); Red Cell Distribution Width 12.4 % (11.5-14.5); White Blood Count 11.3 K/mm3 (4.5-10.0)
[2021-04-19 07:44] LABS: Glucose Point of Care 79 mg/dl (65-105)
[2021-04-19 08:00] VITALS: PULSE 59; RESP 17; O2SAT 96
--- NOTE | 2021-04-19 08:47 | P.PNIM_ITS ---
Progress Note: A&P Assessment and Plan (1) DKA (diabetic ketoacidosis): Qualifiers: Diabetes mellitus complication detail: without coma Diabetes mellitus type: other specified (including CELESTE) Qualified Code(s): E13.10 - Other specified diabetes mellitus with ketoacidosis without coma Code(s): E11.10 - Type 2 diabetes mellitus with ketoacidosis without coma Status: Acute Assessment and Plan: Found to be in DKA at presentation and was admitted to the intensive care unit. * Anion gap closed and insulin drip discontinued. He is now stable on the medical floor. * Continue with Lantus 60 unites tomorrow morning. Lower dose than the 75 from previous day. * Had to hold his Lantus due to glucose of 79 this morning. * Patient takes Humalog 18 units b.i.d. at home (typically only eats breakfast and lunch, reports snacking at dinnertime but does not take insulin). * Continue with 6 units t.i.d. with meals during inpatient hospitalization * Discussed with him maintaining a regular meal schedule and sticking to breakfast, lunch, and dinner. * Consult to CDE. Out of office until 04/21/21. Will request evaluation if patient is still hospitalized at that time, if not will refer for outpatient evaluation with Collator and a Tower Equipment Repairer. * Continue diabetic diet * Working on tighter glycemic control for his Type 2 diabetes. * Last hemoglobin A1c was 10. * Glucose levels today were 79, 136, 221. (2) Cellulitis and abscess of other specified site: Code(s): L03.818 - Cellulitis of other sites; L02.818 - Cutaneous abscess of other sites Status: Acute Assessment and Plan: Abscess of left lateral upper back near the scapula. * Seen in consultation by General surgery. * Intraoperative wound culture with light growth of actinomyces species from anaerobic culture * Soft tissue abscess of the back close to the left scapular area. * Status post incision and drainage in the OR on 04/13/[address] Kelly with intraoperative culture and blood cultures showing Actinomyces. * Zosyn should have adequate coverage. Patient is on Zosyn day 7 today. * ID physician recommends to continue IV Zosyn alone at least for another 1-3 days. * Repeat blood cultures x 2 drawn yesterday, on Apr.18. Those results are pending. Holding discharge for those. * Surgery gave ok for DC * Per Gen. Surgery, patient can shower daily and wash the area of the abscess with soap. After shower, tamped the area dry and place a gauze dressing. Replace the dressing daily and p.r.n.. Use minimal tape to avoid surrounding skin breakdown. Gen. Surgery will see patient in 2 weeks. (3) Positive blood culture: Code(s): R78.81 - Bacteremia Status: Acute Assessment and Plan: 1 blood culture bottle with growth of Gram-positive cocci, 1 bottle with growth of Gram-positive bacilli * Vancomycin added on 04/14. * Consultation to Infectious Disease. * Status post incision and drainage in the OR on 04/13/[address] Kelly with intraoperative culture and blood cultures showing Actinomyces. * Zosyn should have adequate coverage. Patient is on Zosyn day 7 today. * ID physician recommends to continue IV Zosyn alone at least for another 1-3 days. * Repeat blood cultures x 2 drawn yesterday, on Apr.18. Those results are pending. Holding discharge for those. (4) Chronic renal disease: Code(s): N18.9 - Chronic kidney disease, unspecified Status: Chronic Assessment and Plan: Creatinine is stable with GFR >60 BUN/ CR stable. * Monitor BMP * Mag 1.8 * Creatinine 1.
--- NOTE | 2021-04-19 08:47 | PM.IMPN ---
Progress Note: A&P Assessment and Plan (1) DKA (diabetic ketoacidosis): Qualifiers: Diabetes mellitus complication detail: without coma Diabetes mellitus type: other specified (including CELESTE) Qualified Code(s): E13.10 - Other specified diabetes mellitus with ketoacidosis without coma Code(s): E11.10 - Type 2 diabetes mellitus with ketoacidosis without coma Status: Acute Assessment and Plan: Found to be in DKA at presentation and was admitted to the intensive care unit. Anion gap closed and insulin drip discontinued. He is now stable on the medical floor. Continue with Lantus 60 unites tomorrow morning. Lower dose than the 75 from previous day. Had to hold his Lantus due to glucose of 79 this morning. Patient takes Humalog 18 units b.i.d. at home (typically only eats breakfast and lunch, reports snacking at dinnertime but does not take insulin). Continue with 6 units t.i.d. with meals during inpatient hospitalization Discussed with him maintaining a regular meal schedule and sticking to breakfast, lunch, and dinner. Consult to CDE. Out of office until 04/21/21. Will request evaluation if patient is still hospitalized at that time, if not will refer for outpatient evaluation with Tactical/Mobile Watch Officer and a Shade Bander. Continue diabetic diet Working on tighter glycemic control for his Type 2 diabetes. Last hemoglobin A1c was 10. Glucose levels today were 79, 136, 221. (2) Cellulitis and abscess of other specified site: Code(s): L03.818 - Cellulitis of other sites; L02.818 - Cutaneous abscess of other sites Status: Acute Assessment and Plan: Abscess of left lateral upper back near the scapula. Seen in consultation by General surgery. Intraoperative wound culture with light growth of actinomyces species from anaerobic culture Soft tissue abscess of the back close to the left scapular area. Status post incision and drainage in the OR on 04/13/[address] Kelly with intraoperative culture and blood cultures showing Actinomyces. Zosyn should have adequate coverage. Patient is on Zosyn day 7 today. ID physician recommends to continue IV Zosyn alone at least for another 1-3 days. Repeat blood cultures x 2 drawn yesterday, on Apr.18. Those results are pending. Holding discharge for those. Surgery gave ok for DC Per Gen. Surgery, patient can shower daily and wash the area of the abscess with soap. After shower, tamped the area dry and place a gauze dressing. Replace the dressing daily and p.r.n.. Use minimal tape to avoid surrounding skin breakdown. Gen. Surgery will see patient in 2 weeks. (3) Positive blood culture: Code(s): R78.81 - Bacteremia Status: Acute Assessment and Plan: 1 blood culture bottle with growth of Gram-positive cocci, 1 bottle with growth of Gram-positive bacilli Vancomycin added on 04/14. Consultation to Infectious Disease. Status post incision and drainage in the OR on 04/13/[address] Kelly with intraoperative culture and blood cultures showing Actinomyces. Zosyn should have adequate coverage. Patient is on Zosyn day 7 today. ID physician recommends to continue IV Zosyn alone at least for another 1-3 days. Repeat blood cultures x 2 drawn yesterday, on Apr.18. Those results are pending. Holding discharge for those. (4) Chronic renal disease: Code(s): N18.9 - Chronic kidney disease, unspecified Status: Chronic Assessment and Plan: Creatinine is stable with GFR >60 BUN/ CR stable. Monitor BMP Mag 1.8 Creatinine 1.3 DVT prophylaxis -Lovenox subQ (5) Hypertension: Code(s): I10 - Essential (primary) hypertension Status: Chronic Assessment and Plan: Blood pressure has been well controlled. Last BP 128/75 HR 59 Continue lisinopril Monitor blood pressure trends closely (6) COVID-19 ruled out by laboratory testing: Code(s): Z20.822 - Contact with and (susp
[2021-04-19 09:03] LABS: Glucose Point of Care 136 mg/dl (65-105)
[2021-04-19] MEDS: FAMOTIDINE 20 MG TABLET PO ×2 (09:44→22:16)
[2021-04-19] MEDS: ROSUVASTATIN 10 MG TABLET 20 MG PO (09:46)
[2021-04-19] MEDS: lisinopriL 10 MG TABLET PO (09:46)
[2021-04-19] MEDS: ENOXAPARIN 40 MG/0.4 ML SYRINGE SUB-Q (09:46)
[2021-04-19] MEDS: SACCHAROMYCES BOULARDII 250 MG CAPSULE PO ×2 (09:46→17:13)
[2021-04-19 12:09] LABS: Glucose Point of Care 221 mg/dl (65-105)
[2021-04-19] MEDS: INSULIN ASPART (*BKC) 100 UNITS/ML SUB-Q (12:30)
[2021-04-19] MEDS: INSULIN ASPART (*BKC) 100 UNITS/ML 6 UNITS SUB-Q ×2 (12:30→17:12)
[2021-04-19] MEDS: ACETAMINOPHEN 500 MG TABLET PO (13:49)
[2021-04-19 14:19] VITALS: BP 135/79; PULSE 70; RESP 14; TEMP 36.7; O2SAT 98
[2021-04-19 15:40] LABS: Alanine Aminotransferase 26 U/L (4-50); Albumin Level 2.6 g/dL (3.5-5.1); Alkaline Phosphatase 104 U/L (38-126); Anion Gap 7 mmol/L (8-16); Aspartate Amino Transferase 33 U/L (17-59); Bilirubin,Total 0.1 mg/dL (0.2-1.3); Blood Urea Nitrogen 17 mg/dL (9-20); Calcium 8.2 mg/dL (8.4-10.2); Carbon Dioxide 25 mmol/L (22-30); Chloride 103 mmol/L (98-107); Estimated CRCL calculation 57 ml/min; Estimated Glomerular Filt Rate 55; Glucose 250 mg/dL (65-110); Magnesium 1.8 mg/dL (1.6-2.3); Potassium 4.1 mmol/L (3.4-5.0); Sodium 135 mmol/L (137-145)
[2021-04-19 16:21] LABS: Glucose Point of Care 183 mg/dl (65-105)
[2021-04-19 21:34] VITALS: BP 148/79; PULSE 53; RESP 18; TEMP 37.6; O2SAT 100
[2021-04-20 00:44] LABS: Glucose Point of Care 147 mg/dl (65-105)
[2021-04-20 05:28] VITALS: BP 126/72; PULSE 57; RESP 18; TEMP 36.8; O2SAT 99
[2021-04-20 06:41] LABS: Hematocrit 37.1 % (42.0-52.0); Hemoglobin 12.1 g/dL (14.0-18.0); Mean Corpuscular HGB Conc 32.6 g/dl (32-36); Mean Corpuscular Hemoglobin 31.6 pg (26-34); Mean Corpuscular Volume 96.9 fl (80-100); Mean Platelet Volume 9.8 fl (7.4-10.4); Platelet Count Result 348 k/mm3 (150-375); Red Blood Count 3.83 M/mm3 (4.6-6.20); Red Cell Distribution Width 12.6 % (11.5-14.5); White Blood Count 10.4 K/mm3 (4.5-10.0)
[2021-04-20 06:57] LABS: Anion Gap 6 mmol/L (8-16); Blood Urea Nitrogen 15 mg/dL (9-20); Calcium 8.3 mg/dL (8.4-10.2); Carbon Dioxide 23 mmol/L (22-30); Chloride 107 mmol/L (98-107); Estimated CRCL calculation 67 ml/min; Estimated Glomerular Filt Rate > 60; Glucose 133 mg/dL (65-110); Potassium 4.5 mmol/L (3.4-5.0); Sodium 136 mmol/L (137-145)
[2021-04-20 07:44] LABS: Glucose Point of Care 197 mg/dl (65-105)
[2021-04-20 08:00] VITALS: PULSE 57; RESP 18; O2SAT 99
[2021-04-20] MEDS: ACETAMINOPHEN 500 MG TABLET PO (09:11)
[2021-04-20] MEDS: FAMOTIDINE 20 MG TABLET PO (09:13)
[2021-04-20] MEDS: ROSUVASTATIN 10 MG TABLET 20 MG PO (09:13)
[2021-04-20] MEDS: SACCHAROMYCES BOULARDII 250 MG CAPSULE PO (09:13)
[2021-04-20] MEDS: INSULIN ASPART (*BKC) 100 UNITS/ML 6 UNITS SUB-Q ×2 (09:14→11:37)
[2021-04-20] MEDS: ENOXAPARIN 40 MG/0.4 ML SYRINGE SUB-Q (09:14)
[2021-04-20 10:49] LABS: Glucose Point of Care 263 mg/dl (65-105)
--- NOTE | 2021-04-20 10:51 | PM.DS ---
DS: Admitting Diagnosis Discharge Date 04/20/2021 Admitting Diagnosis Abscess, DKA, Hyponatremia DS: Discharge Diagnosis Discharge Diagnosis (1) DKA (diabetic ketoacidosis): Qualifiers: Diabetes mellitus complication detail: without coma Diabetes mellitus type: other specified (including CELESTE) Qualified Code(s): E13.10 - Other specified diabetes mellitus with ketoacidosis without coma Code(s): E11.10 - Type 2 diabetes mellitus with ketoacidosis without coma Status: Acute Assessment and Plan: Found to be in DKA at presentation and was admitted to the intensive care unit. Anion gap closed and insulin drip discontinued a few days ago, and has been stable on the medical floor for >48 hours. Lantus requirements have been inconsistent and I spoke at length with the patient regarding this change. Had to hold his Lantus due to glucose of 79 on Apr.19 Patient takes Humalog 18 units b.i.d. at home (typically only eats breakfast and lunch, reports snacking at dinnertime but does not take insulin). Continued with 6 units t.i.d. with meals during inpatient hospitalization Discussed with him maintaining a regular meal schedule and sticking to breakfast, lunch, and dinner. Refer for outpatient evaluation with Ammonia Worker and a Vault Installer. Continue diabetic diet Working on tighter glycemic control for his Type 2 diabetes. Last hemoglobin A1c was 10. Glucose levels today were 197, 147, 183 recently. (2) Cellulitis and abscess of other specified site: Code(s): L03.818 - Cellulitis of other sites; L02.818 - Cutaneous abscess of other sites Status: Acute Assessment and Plan: Abscess of left lateral upper back near the scapula. Seen in consultation by General surgery. Intraoperative wound culture with light growth of actinomyces species from anaerobic culture Soft tissue abscess of the back close to the left scapular area. Status post incision and drainage in the OR on 04/13/[address] Kelly with intraoperative culture and blood cultures showing Actinomyces. Zosyn for 7-8 days covered it in hospital. Continue Augmentin per ID note at discharge. Repeat blood cultures x 2 drawn on Apr.18 showed no growth preliminarily. Surgery gave ok for DC. ID gave ok for DC. Per Gen. Surgery, patient can shower daily and wash the area of the abscess with soap. After shower, tamped the area dry and place a gauze dressing. Replace the dressing daily and p.r.n.. Use minimal tape to avoid surrounding skin breakdown. Gen. Surgery will see patient in 2 weeks. (3) Positive blood culture: Code(s): R78.81 - Bacteremia Status: Acute Assessment and Plan: 1 blood culture bottle with growth of Gram-positive cocci, 1 bottle with growth of Gram-positive bacilli Consultation to Infectious Disease. Status post incision and drainage in the OR on 04/13/[address] Kelly with intraoperative culture and blood cultures showing Actinomyces. Zosyn for 7-8 days covered it in hospital. Continue Augmentin per ID note at discharge. Repeat blood cultures x 2 drawn on Apr.18 showed no growth preliminarily. Surgery gave ok for DC. ID gave ok for DC. (4) Chronic renal disease: Code(s): N18.9 - Chronic kidney disease, unspecified Status: Chronic Assessment and Plan: Creatinine is stable with GFR >60 BUN/ CR stable. Monitor BMP Mag 1.8 Creatinine 1.1 DVT prophylaxis -Lovenox subQ (5) Hypertension: Code(s): I10 - Essential (primary) hypertension Status: Chronic Assessment and Plan: Blood pressure has been well controlled. Last BP 126/725 HR 53-70 Continue lisinopril Monitor blood pressure trends closely (6) COVID-19 ruled out by laboratory testing: Code(s): Z20.822 - Contact with and (suspected) exposure to COVID-19 Status: Acute Assessment and Plan: Negative test on 04/11/2021 Isolation precautions d
--- NOTE | 2021-04-20 10:51 | P.DS_ITS ---
DS: Admitting Diagnosis Discharge Date 04/20/2021 Admitting Diagnosis Abscess, DKA, Hyponatremia DS: Discharge Diagnosis Discharge Diagnosis (1) DKA (diabetic ketoacidosis): Qualifiers: Diabetes mellitus complication detail: without coma Diabetes mellitus type: other specified (including CELESTE) Qualified Code(s): E13.10 - Other specified diabetes mellitus with ketoacidosis without coma Code(s): E11.10 - Type 2 diabetes mellitus with ketoacidosis without coma Status: Acute Assessment and Plan: Found to be in DKA at presentation and was admitted to the intensive care unit. * Anion gap closed and insulin drip discontinued a few days ago, and has been stable on the medical floor for >48 hours. * Lantus requirements have been inconsistent and I spoke at length with the patient regarding this change. * Had to hold his Lantus due to glucose of 79 on Apr.19 * Patient takes Humalog 18 units b.i.d. at home (typically only eats breakfast and lunch, reports snacking at dinnertime but does not take insulin). * Continued with 6 units t.i.d. with meals during inpatient hospitalization * Discussed with him maintaining a regular meal schedule and sticking to breakfast, lunch, and dinner. * Refer for outpatient evaluation with Equipment Operator/Laborer and a Substitute School Nurse. * Continue diabetic diet * Working on tighter glycemic control for his Type 2 diabetes. * Last hemoglobin A1c was 10. * Glucose levels today were 197, 147, 183 recently. (2) Cellulitis and abscess of other specified site: Code(s): L03.818 - Cellulitis of other sites; L02.818 - Cutaneous abscess of other sites Status: Acute Assessment and Plan: Abscess of left lateral upper back near the scapula. * Seen in consultation by General surgery. * Intraoperative wound culture with light growth of actinomyces species from anaerobic culture * Soft tissue abscess of the back close to the left scapular area. * Status post incision and drainage in the OR on 04/13/[address] Kelly with intraoperative culture and blood cultures showing Actinomyces. * Zosyn for 7-8 days covered it in hospital. Continue Augmentin per ID note at discharge. * Repeat blood cultures x 2 drawn on Apr.18 showed no growth preliminarily. * Surgery gave ok for DC. ID gave ok for DC. * Per Gen. Surgery, patient can shower daily and wash the area of the abscess with soap. After shower, tamped the area dry and place a gauze dressing. Replace the dressing daily and p.r.n.. Use minimal tape to avoid surrounding skin breakdown. Gen. Surgery will see patient in 2 weeks. (3) Positive blood culture: Code(s): R78.81 - Bacteremia Status: Acute Assessment and Plan: 1 blood culture bottle with growth of Gram-positive cocci, 1 bottle with growth of Gram-positive bacilli * Consultation to Infectious Disease. * Status post incision and drainage in the OR on 04/13/[address] Kelly with intraoperative culture and blood cultures showing Actinomyces. * Zosyn for 7-8 days covered it in hospital. Continue Augmentin per ID note at discharge. * Repeat blood cultures x 2 drawn on Apr.18 showed no growth preliminarily. * Surgery gave ok for DC. ID gave ok for DC. (4) Chronic renal disease: Code(s): N18.9 - Chronic kidney disease, unspecified Status: Chronic Assessment and Plan: Creatinine is stable with GFR >60 BUN/ CR stable. * Monitor BMP * Mag 1.8 * Creatinine 1.1 * DVT prophylaxis -Lovenox subQ (5) Hypertension: Code(s): I10 - Essential (primary) hypertension Status:
--- NOTE | 2021-04-20 11:02 | WPDINFPN2 ---
Progress Note: A&P Additional Plan 1. Mixed gram-positive transient bacteremia with Actinomyces and Streptococcus. Suspect this may be a true infection. Wound culture from incision and drainage site also grew Actinomyces. I suspect this may be a transient bacteremia. Patient is on Zosyn day 8. Repeat blood cultures are negative. Patient is clinically doing well. May transition to Augmentin 875 p.o. b.i.d. for 1 week upon discharge. Okay for discharge planning if okay with others. 2. Soft tissue abscess of the back close to the left scapular area. Status post incision and drainage with intraoperative culture showing Actinomyces. Zosyn should have adequate coverage. 3. Type 2 diabetes recommend tighter glycemic control. Last hemoglobin A1c was 10. Subjective Date/time seen: 04/20/21 11:02 Exam Const: General: cooperative HENMT: Head: normal to inspection Mouth: Yes Normal oral and palatal mucosa present Eyes: Pupils: Equal, round and reactive pupils present Resp: Effort & Inspection: normal respiratory effort Cardio: Rate: regular rate Rhythm: regular rhythm Heart sounds: S1 normal heart sound present and S2 normal heart sound present GI: Inspection: normal to inspection GI Palp: No abdominal tenderness, No Abdominal aortic bruit present, No Soft to palpation, No Firmness to palpation present (GI), No Tenderness to palpation present (GI), No Guarding due to palpation present (GI), No Rigid due to palpation, No No hepatosplenomegaly present, No Hepatosplenomegaly present, No Hepatomegaly present, No Splenomegaly present, No Hernia present, No Palpable mass present, No Pulsatile mass present, No Aortic enlargement present, No Ascites present, No Carnett's sign positive, No Rebound tenderness present, No Bladder palpation abnormal and No Other GI palpation findings present Auscultation: normal bowel sounds Skin: Wounds: wounds noted Other: The surgical site wound is clean. No surrounding erythema or necrosis. Neuro: General: oriented to person Cranial nerves: Yes CN's II-XII intact bilaterally Speech: normal speech Extrem: General: normal to inspection Objective Data Vital Signs Vital Signs: Vital Signs - 24 hr 04/19/21 14:19 04/19/21 21:34 04/20/21 05:28 Temperature 36.7 C 37.6 C H 36.8 C Pulse Rate 70 53 L 57 L Respiratory Rate 14 18 18 Blood Pressure 135/79 148/79 H 126/72 Pulse Oximetry 98 100 99 04/20/21 08:00 Temperature Pulse Rate 57 L Respiratory Rate 18 Blood Pressure Pulse Oximetry 99 Intake/Output Intake/Output: Intake & Output 04/17/21 04/18/21 04/19/21 04/20/21 23:59 23:59 23:59 23:59 Intake Total 3310 2440 1250 290 Output Total 400 Balance 2910 2440 1250 290 Meds/Results Medications: Active Medications Generic Name Dose Route Start Last Admin Trade Name Freq PRN Reason Stop Dose Admin Acetaminophen 500 mg 04/13/21 11:30 04/20/21 09:11 Acetaminophen 500 Mg Tablet PO 500 mg Q6H PRN Administration Mild Pain (1-3) or Fever Hydrocodone Bitart/Acetaminophen 1 tab 04/13/21 11:30 04/13/21 17:33 Hydrocodone/Acetaminophen (*Crx) 5-325 Mg Tablet PO 1 tab Q4H PRN Administration Pain Rated 4-6 Hydrocodone Bitart/Acetaminophen 1 tab 04/13/21 11:30 04/16/21 17:54 Hydrocodone/Acetaminophen (*Crx) 10-325 Mg Tablet PO 1 tab Q4H PRN Administration Pain Rated 7-10 Enoxaparin Sodium 40 mg 04/12/21 09:00 04/20/21 09:14 Enoxaparin 40 Mg/0.4 Ml Syringe SUB-Q 40 mg DAILY KRISTIN Administration Escitalopram Oxalate 10 mg 04/13/21 09:00 04/14/21 08:13 Escitalopram Oxalate 10 Mg Tablet PO 10 mg DAILY KRISTIN Administration Famotidine 20 mg 04/13/21 21:00 04/20/21 09:13 Famotidine 20 Mg Tablet PO 20 mg Q12HR KRISTIN Administration Glucagon 1 mg 04/11/21 21:43 Glucagon For Inj 1 Mg Vial IM PRN PRN Hypoglycemia Protocol Hydralazine HCl 10 mg 04/11/21 22:09 Hydralazine Hcl 20 Mg/Ml Vial IV PUSH
[2021-04-20] MEDS: INSULIN ASPART (*BKC) 100 UNITS/ML SUB-Q ×2 (11:37→11:38)
[2021-04-20 11:48] LABS: Glucose Point of Care 227 mg/dl (65-105)
[2021-04-20] MEDS: lisinopriL 10 MG TABLET PO (13:24)
[2021-04-20 14:51] VITALS: BP 146/80; PULSE 58; RESP 12; TEMP 36.8; O2SAT 100
[2021-04-20 15:01] LABS: Vancomycin Trough 5.3 ug/mL (10.0-20.0)
--- NOTE | 2021-04-30 15:51 | PM.IMPN ---
Progress Note: A&P Assessment and Plan (1) DKA (diabetic ketoacidosis): Qualifiers: Diabetes mellitus complication detail: without coma Diabetes mellitus type: other specified (including CELETSE) Qualified Code(s): E13.10 - Other specified diabetes mellitus with ketoacidosis without coma Code(s): E11.10 - Type 2 diabetes mellitus with ketoacidosis without coma Status: Acute Assessment and Plan: Please note: This note serves as hospitalist progress note for 04/15/2021 Found to be in DKA at presentation and was admitted to the intensive care unit. Anion gap closed and insulin drip discontinued. He was stable on the medical floor for >48 hours. Continue Accu-Cheks, sliding scale insulin, hypoglycemic protocol Lantus continued Diabetic diet (2) Cellulitis and abscess of other specified site: Code(s): L03.818 - Cellulitis of other sites; L02.818 - Cutaneous abscess of other sites Status: Acute Assessment and Plan: Abscess noted to the left lateral upper back near the scapula. Seen in consultation by General surgery. Input is appreciated S/p I&D in the OR on 04/13/[address] Kelly Continue with Kay Intraoperative wound culture pending (3) Positive blood culture: Code(s): R78.81 - Bacteremia Status: Acute Assessment and Plan: 1 blood culture bottle with growth of Gram-positive cocci, 1 bottle with growth of Gram-positive bacilli Continue IV antibiotics Await further identification from blood cultures Consider infectious disease consultation based on results (4) Chronic renal disease: Code(s): N18.9 - Chronic kidney disease, unspecified Status: Chronic Assessment and Plan: Creatinine remained stable (5) Hypertension: Code(s): I10 - Essential (primary) hypertension Status: Chronic Assessment and Plan: Blood pressure reviewed controlled. Continue antihypertensives (6) COVID-19 ruled out by laboratory testing: Code(s): Z20.822 - Contact with and (suspected) exposure to COVID-19 Status: Acute Assessment and Plan: Negative test on 04/11/2021. Isolation precautions discontinued (7) Hyponatremia: Code(s): E87.1 - Hypo-osmolality and hyponatremia Status: Acute Assessment and Plan: Persistently low this hospitalization ranging from 126-131. Sodium 134 on 04/15. Subjective Date/time seen: 04/30/21 15:51 Interval history: Please note: This note serves as hospitalist progress note for 04/15/2021 Date of dictation: 04/30/2021 Regarding progress note for 04/15/2021 Suhas Childress is a 66-year-old male with a history of diabetes mellitus, COPD, CKD, hypertension, and hyperlipidemia who was seen in follow-up for DKA and abscess of left upper back. I was informed that there was no progress note entered for 04/15/2021. I have reviewed my written notes from this stay that indicate I did complete a progress note. I have reached out to IT to report this issue so a ticket can be submitted to [employer]. Per my written notes, the patient reported loose stool and back pain that he rated as 8/10, stating it felt warm to touch and was leaking clear fluid. He complained about having a fluid restriction. Review of Systems Review of Systems: All systems reviewed & are unremarkable except as noted in HPI and below Exam Narrative: Mr. Childress is a well-nourished, well-appearing 66-year-old male who is lying supine in bed. He appears comfortable and is in NARD. Neuro: awake, alert and oriented x4, speech clear, no focal neuro deficits noted HEENMT: normocephalic, atraumatic, EOMI, sclerae anicteric Back: upper back covered with gauze dressing Respiratory: clear to auscultation bilaterally, nonlabored breathing Cardio: regular rate, regular rhythm with S1-S2 Abdomen: nondistended, normoactive bowel sounds, soft, nontender to palpation Extremities: no edema, e
== END 2021-04-20 14:55 | disposition home or self-care (01) | DRG 638 ==
LOC: ANHED 17:51 → ANH3MEDSUR 04-13 06:44 → ANHICU 04-23 09:36
PROVIDERS: Internal Medicine; Nurse Practitioner; Physician Assistant; Surgery; Admitting Provider Hospitalist; Emergency Provider Emergency Medicine; PCP Family Medicine; Visit Provider Nurse Practitioner
PROC: 0J970ZX Drainage of Back Subcutaneous Tissue and Fascia, Open Approach, Diagnostic (ICD-10-PCS; principal; 2021-04-13 09:30)
DX: E11.10 Type 2 diabetes mellitus with ketoacidosis without coma (principal); E87.1 Hypo-osmolality and hyponatremia; L02.212 Cutaneous abscess of back [any part, except buttock and flank]; R78.81 Bacteremia; L03.818 Cellulitis of other sites; B95.4 Other streptococcus as the cause of diseases classified elsewhere; B96.89 Other specified bacterial agents as the cause of diseases classified elsewhere; Z20.822 Contact with and (suspected) exposure to COVID-19; N18.9 Chronic kidney disease, unspecified; I12.9 Hypertensive chronic kidney disease with stage 1 through stage 4 chronic kidney disease, or unspecified chronic kidney disease; E11.22 Type 2 diabetes mellitus with diabetic chronic kidney disease; E11.65 Type 2 diabetes mellitus with hyperglycemia; E11.42 Type 2 diabetes mellitus with diabetic polyneuropathy; H40.9 Unspecified glaucoma; J44.9 Chronic obstructive pulmonary disease, unspecified; N52.9 Male erectile dysfunction, unspecified; E78.2 Mixed hyperlipidemia; F41.8 Other specified anxiety disorders; Z66 Do not resuscitate; Z79.4 Long term (current) use of insulin; Z87.891 Personal history of nicotine dependence
CPT/HCPCS: 36415; 36600; 71046; 80048; 80053; 80076; 80202; 81001; 82010; 82375; 82570; 82728; 82805; 82948; 83036; 83050; 83605; 83615; 83735; 84100; 84295; 84300; 84443; 85025; 85027; 86140; 87040; 87070; 87075; 87205; 96361; 96374; 96375; 99285; A9270; C9803; J0743; J1170; J1650; J1815; J2270; J2405; J2543; J2704; J3010; J3370; J3480; J7030; J7120; U0003; U0005

== ENCOUNTER 2023-07-08 11:11 | Outpatient (CLI) | payer MEDICARE, SELFPAY ==
--- NOTE | ~2023-07-08 | XR_ITS ---
Clinical Indication: COPD PA and lateral views of the chest: Comparison: 04/11/2021 Findings: The lungs are clear, without evidence of focal consolidation or pleural effusion. Cardiome diastinal silhouette is within normal limits. Bones and soft tissues are unremarkable. Impression: Normal chest. Reviewed, dictated and finalized at location . YARD LABORER Impression: Normal chest.
== END 2023-07-08 11:12 ==
PROVIDERS: PCP Family Medicine; Visit Provider Family Medicine
DX: J44.9 Chronic obstructive pulmonary disease, unspecified (principal)
CPT/HCPCS: 71046

== ENCOUNTER 2024-01-06 11:38 | Outpatient (CLI) | payer MEDICARE, SELFPAY ==
--- NOTE | ~2024-01-06 | XR_ITS ---
EXAMINATION: XR chest 2V 01/06/2024 12:00 INDICATION: Dyspnea. COPD. PROCEDURE: 2 view chest COMPARISON: Comparison to multiple prior studies sequentially, with oldest reviewed study dated 06/19. FINDINGS: The lungs are clear. The cardiomediastinal silhouette is within normal limits. There are no pleural effusions. There is no pneumothorax suspected. IMPRESSION: 1: NO ACUTE CARDIOPULMONARY DISEASE. Reviewed, dictated and finalized at location B.
== END 2024-01-06 11:39 ==
LOC: MICIMG 11:41
PROVIDERS: PCP Family Medicine; Visit Provider Family Medicine
DX: J44.9 Chronic obstructive pulmonary disease, unspecified (principal)
CPT/HCPCS: 71046

== ENCOUNTER 2024-03-29 01:47 | Day surgery (SDC) | payer MEDICARE, SELFPAY ==
[2024-03-09 08:59] VITALS: BMI 29.8
[2024-03-29 09:45] VITALS: BP 125/71; PULSE 110; RESP 18; TEMP 36.5; O2SAT 96; BMI 29.7
[2024-03-29 09:55] LABS: Glucose Point of Care 198 mg/dl (65-105)
--- NOTE | 2024-03-29 10:07 | WPDANESEPPF ---
Anes - Initial Pre Proc Eval Procedure: Operation Date: 03/29/24 11:00 Proposed Procedures p Colonoscopy - Rudy Tavares MD Date/Time: 03/29/24 10:07 Surgeon: Rudy Tavares MD Pre Op Diagnosis: Personal hx. of colon polyp Patient Data Age: 69 Gender: M Height: 1.83 m Weight: 99.5 kg Last Vital Signs Temp 97.7 F 03/29/24 09:45 Pulse 110 H 03/29/24 09:45 Resp 18 03/29/24 09:45 BP 125/71 03/29/24 09:45 Pulse Ox 96 03/29/24 09:45 O2 Del Method Room Air 03/29/24 09:45 Allergies Allergy/AdvReac Type Severity Reaction Status Date / Time levofloxacin Allergy Unknown rash Verified 03/29/24 09:56 Home Medications Medication Instructions Recorded Confirmed Type blood-glucose meter (OneTouch #1 ea 09/04/19 03/29/24 Rx Ultra2 Meter) cholecalciferol (vitamin D3) 25 25 mcg PO DAILY 04/11/21 03/29/24 History mcg (1,000 unit) capsule (Vitamin D3) lisinopril 10 mg tablet See Rx Instructions .Route 07/08/23 03/29/24 Rx .COMPLEX #90 tabs rosuvastatin 40 mg tablet (Crestor) 40 mg PO DAILY #90 tabs 09/08/23 03/29/24 Rx empagliflozin 12.5 mg-metformin 1 tablet PO BID #180 tabs 09/09/23 03/29/24 Rx 1,000 mg tablet (Synjardy) blood sugar diagnostic #360 ea 11/02/23 03/29/24 Rx insulin syringe-needle U-100 1 mL #100 ea 11/16/23 03/29/24 Rx 28 gauge x 1/2 (BD Insulin Syringe Micro-Fine) pen needle, diabetic 29 gauge x #200 ea 11/16/23 03/29/24 Rx 1/2 (BD Ultra-Fine Original Pen Needle) bupropion HCl 150 mg 24 hr tablet, 150 mg PO QAM #90 tabs 12/19/23 03/29/24 Rx extended release blood-glucose sensor (FreeStyle #6 ea 01/06/24 03/29/24 Rx Michael 3 Sensor device) gabapentin 300 mg capsule 300 mg PO TID #90 caps 01/24/24 03/29/24 Rx insulin glargine 100 unit/mL (3 100 unit subcut DAILY #90 mL 01/24/24 03/29/24 Rx mL) subcutaneous pen (Basaglar KwikPen U-100 Insulin) insulin lispro 100 unit/mL See Rx Instructions subcut 01/24/24 03/29/24 Rx subcutaneous cartridge (Humalog .COMPLEX #180 mL U-100 Insulin) Laboratory Tests 03/29/24 09:53 POC Capillary Glucose 198 H mg/dl (65-105) Patient hx anesthesia problems: none Family hx anesthesia problems: none Results Review: All pre-operative results and documents have been reviewed as part of the pre-operative evaluation. [facility] Past Medical History Medical History (Updated 01/24/24 @ 17:43 by NEELAM HuangP) Abscess of upper back excluding scapular region Abscess or cellulitis, oral soft tissue Back pain BMI 31.0-31.9,adult Candidiasis of skin Changing skin lesion Chronic renal disease Colon polyp COPD (chronic obstructive pulmonary disease) Depression with anxiety Diabetes mellitus Diabetes mellitus with complication, with long-term current use of insulin Diabetes mellitus with microalbuminuria Diabetic neuropathy Diarrhea DKA (diabetic ketoacidosis) Erectile dysfunction Glaucoma Hypercalcemia Hypertension Hyponatremia Hyponatremia Left leg DVT Mixed hyperlipidemia Neuropathy Positive blood culture Screening for prostate cancer Viral illness Vitamin D deficiency Surgical History Surgical History History of incision and drainage 04/10/21 Incision and drainage complex left back abscess History of orthopedic surgery Bilateral feet due to clubfoot Hx of colonoscopy Family History Family History Grandparent Family history of malignant neoplasm Diabetes mellitus Father Diabetes mellitus Family history of type 2 diabetes mellitus Carcinoma of colon Hypertension Mother Heart disease COPD (chronic obstructive pulmonary disease) Lung disease Glaucoma Hypertension Sibling Liver disease Sibling Hypertension Other Family history of cardiovascular disease So
[2024-03-29] MEDS: LACTATED RINGERS 1,000 ML 150 ML IV CONT (10:12)
--- NOTE | 2024-03-29 10:59 | PM.HPGS ---
History of Present Illness History of Present Illness Consent: Risks, benefits, and alternatives have been discussed and questions answered. Patient agrees to proceed with procedure. Chief complaint: Personal hx. of colon polyp Narrative: Suhas Childress is a 69 year old male with colon polyp about 8 years ago Review of Systems Review of Systems: All systems reviewed & are unremarkable except as noted in HPI and below PMFSH Past Medical History Medical History (Updated 01/24/24 @ 17:43 by Ceci Ruiz, [employer] WHE[employer]) Abscess of upper back excluding scapular region Abscess or cellulitis, oral soft tissue Back pain BMI 31.0-31.9,adult Candidiasis of skin Changing skin lesion Chronic renal disease Colon polyp COPD (chronic obstructive pulmonary disease) Depression with anxiety Diabetes mellitus Diabetes mellitus with complication, with long-term current use of insulin Diabetes mellitus with microalbuminuria Diabetic neuropathy Diarrhea DKA (diabetic ketoacidosis) Erectile dysfunction Glaucoma Hypercalcemia Hypertension Hyponatremia Hyponatremia Left leg DVT Mixed hyperlipidemia Neuropathy Positive blood culture Screening for prostate cancer Viral illness Vitamin D deficiency Surgical History Surgical History History of incision and drainage 04/10/21 Incision and drainage complex left back abscess History of orthopedic surgery 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 We reviewed what a DNR is and he stated that that is what he wanted. The patient has 6 children and they live elsewhere. The patient is . The patient is retired and lives home alone. He does not have a durable power banking attorney for healthcare. Smoking packs per day: 2 Smoking cigarettes per day: 40.0 Smoking status: Former smoker Tobacco type: cigarettes Second hand tobacco smoke exposure: Yes Smoking end date: 04/11/11 Substance use: current Substance use type: marijuana Other substance usage details: smoking and edibles Do You Feel Safe in your Home?: Yes Lack of Transportation: No Lack of Food: Never True Current Housing: I Have Housing Concerned About Future Housing: No Difficulty Paying Gas/Electric Bills: No Difficulty Paying for Meds: No Currently Unemployed: No Education: High School Diploma/GED Difficulty w/ Childcare or Family Care: No Living arrangements: with friend(s) Additional living arrangements comments: Lives with brothers . 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 [employer] Gender identity (if verbalized by the patient): Male Sexual Orientation (if Verbalized by the Patient): Straight or Heterosexual Spiritual care concerns: No Agree to blood products: Yes Meds Home Medications and Allergies Home Medications Medication Instructions Recorded Confirmed Type blood-glucose meter (OneTouch #1 ea 09/04/19 03/29/24 Rx Ultra2 Meter) cholecalciferol (vitamin D3) 25 25 mcg PO DAILY 04/11/21 03/29/24 History mcg (1,000 unit) capsule (Vitamin D3) lisinopril 10 mg tablet See Rx Instructions .Route 07/08/23 03/29/24 Rx .COMPLEX #90 tabs rosuvastatin 40 mg tablet (Crestor) 40 mg
[2024-03-29 11:18] VITALS: BP 106/61; PULSE 84; RESP 22; O2SAT 96
[2024-03-29 11:28] VITALS: BP 98/72; PULSE 82; RESP 19; O2SAT 95
[2024-03-29 11:31] LABS: Glucose Point of Care 195 mg/dl (65-105)
[2024-03-29 11:38] VITALS: BP 114/67; PULSE 80; RESP 21; O2SAT 97
== END 2024-03-29 11:50 | disposition home or self-care (01) ==
PROVIDERS: PCP Family Medicine; Referring Provider Family Medicine; Visit Provider Internal Medicine Gastroenterology
PROC: 0DJD8ZZ Inspection of Lower Intestinal Tract, Via Natural or Artificial Opening Endoscopic (ICD-10-PCS; CPT 45378; principal; 2024-03-29 11:00)
DX: Z12.11 Encounter for screening for malignant neoplasm of colon (principal); D12.3 Benign neoplasm of transverse colon; E83.52 Hypercalcemia; E87.1 Hypo-osmolality and hyponatremia; E78.2 Mixed hyperlipidemia; E11.40 Type 2 diabetes mellitus with diabetic neuropathy, unspecified; E11.10 Type 2 diabetes mellitus with ketoacidosis without coma; I12.9 Hypertensive chronic kidney disease with stage 1 through stage 4 chronic kidney disease, or unspecified chronic kidney disease; N18.9 Chronic kidney disease, unspecified; J44.9 Chronic obstructive pulmonary disease, unspecified; N52.9 Male erectile dysfunction, unspecified; F41.8 Other specified anxiety disorders; B37.2 Candidiasis of skin and nail; R80.9 Proteinuria, unspecified; F12.90 Cannabis use, unspecified, uncomplicated; Z79.84 Long term (current) use of oral hypoglycemic drugs; Z79.4 Long term (current) use of insulin; Z79.85 Long-term (current) use of injectable non-insulin antidiabetic drugs; Z98.890 Other specified postprocedural states; Z87.891 Personal history of nicotine dependence; Z86.718 Personal history of other venous thrombosis and embolism; Z80.0 Family history of malignant neoplasm of digestive organs; Z82.49 Family history of ischemic heart disease and other diseases of the circulatory system
CPT/HCPCS: 45385; 82948; 88305; J2001; J2704; J7120